=== PATIENT | female | born 1990 | race Caucasian/White ===

== ENCOUNTER 2020-03-29 18:17 | Emergency (ER) | payer SELFPAY ==
[~2020-03-29] VITALS: Ht 175.3 cm; Wt 75.0 kg
[2020-03-29] MEDS ORDERED: IV NORMAL SALINE 1000ML BAG 1,000 ML IV SCH (18:46)
--- NOTE | 2020-03-29 18:54 | PHYS DOC ---
Past Medical History Past Medical History: No Pertinent History Past Surgical History: Appendectomy, Tonsillectomy Smoking Status: Never Smoker Alcohol Use: None General Adult EDM: Chief Complaint: NAUSEA/VOMITING/DIARRHA HPI: HPI: Patient is a 30 year old female who presents with states for the last couple weeks she has had nausea, vomiting, abdominal pain, diarrhea and blood in her diarrhea. She states that the pain is sharp and shooting and generalized. She states is more so does hurt in the left upper quadrant than anywhere else. She states she is unable to keep any food or drink down for the last couple days. She did see her primary care who referred her to a GI doctor. She has a appointment with a GI doctor in 3 weeks. She states that her primary care doctor gave her Zofran which is not working. She is tachycardic. She rates her pain an 8 out of 10. She states she has been taking Tylenol and ibuprofen but vomited it back up. Review of Systems: Review of Systems: GI: abdominal pain, nausea, vomiting, bloody stools or diarrhea. [] Heart Score: Risk Factors: Risk Factors: DM, Current or recent (<one month) smoker, HTN, HLP, family history of CAD, obesity. Risk Scores: Score 0 - 3: 2.5% MACE over next 6 weeks - Discharge Home Score 4 - 6: 20.3% MACE over next 6 weeks - Admit for Clinical Observation Score 7 - 10: 72.7% MACE over next 6 weeks - Early Invasive Strategies Current Medications: Current Medications Medications (Trade) Dose Ordered Sig/[facility] Start Time Stop Time Status Last Admin Dose Admin Fentanyl Citrate (Fentanyl 2ml Vial) 50 mcg 1X ONCE 03/29/20 19:00 03/29/20 19:01 UNV Ondansetron HCl (Zofran) 4 mg 1X ONCE 03/29/20 19:00 03/29/20 19:01 UNV Sodium Chloride 1,000 ml @ 1,000 mls/hr Q1H 03/29/20 18:46 03/29/20 19:45 UNV Allergies: Allergies: Allergies Coded Allergies Type Severity Reaction Last Updated Verified No Known Drug Allergies 03/29/20 No Physical Exam: PE: Constitutional: Well developed, well nourished, no acute distress, non-toxic appearance. [] HENT: Normocephalic, atraumatic, bilateral external ears normal, oropharynx moist, no oral exudates, nose normal. [] Eyes: PERRLA, EOMI, conjunctiva normal, no discharge. [] Neck: Normal range of motion, no tenderness, supple, no stridor. [] Cardiovascular:Heart rate regular rhythm, no murmur [] Lungs & Thorax: Bilateral breath sounds clear to auscultation [] Abdomen: Bowel sounds normal, soft, generalized tenderness, no masses, no pulsatile masses. [] Skin: Warm, dry, no erythema, no rash. [] Back: No tenderness, no CVA tenderness. [] Extremities: No tenderness, no cyanosis, no clubbing, ROM intact, no edema. [] Neurologic: Alert and oriented X 3, normal motor function, normal sensory function, no focal deficits noted. [] Psychologic: Affect normal, judgement normal, mood normal. [] Current Patient Data: Labs: Laboratory Tests Test 03/29/20 18:30 POC Urine HCG, Qualitative Hcg negative (Negative) Vital Signs: Vital Signs Date Time Temp Pulse Resp B/P (MAP) Pulse Ox O2 Delivery O2 Flow Rate FiO2 03/29/20 18:34 98.0 120 20 141/78 (99) 100 Room Air 98.0 EKG: EKG: [] Radiology/Procedures: Radiology/Procedures: [] Impression: [facility] [address] [place], [place] [id number] IMAGING REPORT Signed PATIENT: TANK TOMAS ACCOUNT: [id number] : 1990 LOCATION: ER AGE: 30 SEX: F EXAM STATUS: REG ER ORD. PHYSICIAN: DEMI CH APRN REASON: ABD PAIN, DIARRHEA, VOMITING PROCEDURE: CT ABD PELV W/ IV CONTRST ONLY CT ABD PELV W/ IV CONTRST ONLY History: Reason: ABD PAIN, DIARRHEA, VOMITING / Spl. Instructions: [id number] 60ML / History: Technique: After the administration of intravenous contrast, CT imaging was performed of the abdomen and pelvis. Multiplanar images are reviewed. Exposure: One or more of the following individualized dose reduction techniques were utilized for this examination: 1. Automated exposure control 2. Adjustment of the mA and/or kV according to patient size 3. Use of iterative reconstruction technique. Comparison: January 24, 2020 Findings: Lower chest: No consolidation or pleural effusion. Abdomen and pelvis: The liver, spleen, adrenal glands, and pancreas are unremarkable. Prior cholecystectomy. No biliary ductal dilatation. Normal appearance of the kidneys. No hydronephrosis. Decompressed urinary bladder. Prior appendectomy. No evidence of bowel obstruction. No pathologic lymphadenopathy. No ascites. Bones: No pathologic osseous lesions. Impression: 1. No acute abdominal or pelvic pathology. Electronically signed by: Jon Kaur DO (03/29/2020 7:59 PM) [facility] DICTATED and SIGNED BY: JON KAUR DO DATE: 03/29/201958 Course & Med Decision Making: Course & Med Decision Making Pertinent Labs and Imaging studies reviewed. (See chart for details) Alert and oriented. Speaks in full clear sentences. Ambulatory with steady gait. Abdomen is soft generalized tenderness throughout. Patient is tachycardic. Skin pink warm and dry. Blood work unremarkable. Urinalysis is unremarkable. CT abdomen pelvis is un remarkable. Patient was PO challenged and drank water and kept it down. Patient to be sent home with ODT zofran and to slowly increase her diet starting with fluids only. Patient to keep her scheduled appointment with GI at [facility] doctor as scheduled. . [] Julisa Disclaimer: Julisa Disclaimer: This electronic medical record was generated, in whole or in part, using a voice recognition dictation system. Departure Departure Impression: Primary Impression: Nausea & vomiting Qualified Codes: R11.2 - Nausea with vomiting, unspecified Disposition: 01 HOME, SELF-CARE Condition: STABLE Patient Instructions: Nausea and Vomiting, [place]-cy-[id number] Additional Instructions: Slowly advance her diet. Start with fluids. Take sips of fluid often to stay hydrated. Use medication as prescribed. Scripts Hydrocodone/Apap 5-325 (NORCO 5-325 TABLET) 1 Each Tablet 1 TAB PO PRN Q6HRS PRN for PAIN, #10 TAB 0 Refills Prov: DEMI CH APRN 03/29/20 Ondansetron (ONDANSETRON ODT) 4 Mg Tab.rapdis 1 TAB PO PRN Q6-8HRS, #16 TAB Prov: DEMI CH APRN 03/29/20 Justicifation of Admission Dx: Justifications for Admission: Justification of Admission Dx: N/A DEMI CH APRN Mar 29, 2020 18:53
[2020-03-29] MEDS ORDERED: fentaNYL PF VIAL 100 MCG/2 ML VIAL IVP ONE (19:00)
[2020-03-29] MEDS ORDERED: ONDANSETRON PF 4 MG/2 ML VIAL. IVP ONE (19:00)
[2020-03-29 19:09] LABS: BILIRUBIN,URINE NEGATIVE (NEG); CLARITY,URINE CLEAR; COLOR,URINE YELLOW; NITRITE,URINE NEGATIVE (NEG); PH,URINE 5.5 (<5.0-8.0); PROTEIN,URINE NEGATIVE (NEG-TRACE); UROBILINOGEN,URINE 0.2 mg/dL (0.2 mg/dL)
[2020-03-29 19:13] LABS: BASO % 0 % (0-3); EOS % 0 % (0-3); HEMATOCRIT 32.3 % (36.0-47.0); HEMOGLOBIN 10.9 g/dL (12.0-15.5); LYMPH # 1.5 x10^3/uL (1.0-4.8); LYMPH % 20 % (24-48); MEAN CORPUSCULAR HEMOGLOBIN 28 pg (25-35); MEAN CORPUSCULAR HGB CONC 34 g/dL (31-37); MEAN CORPUSCULAR VOLUME 82 fL (79-100); MONO # 0.6 x10^3/uL (0.0-1.1); MONO % 8 % (0-9); NEUT # 5.4 x10^3/uL (1.8-7.7); NEUT % 71 % (31-73); PLATELET COUNT 268 x10^3/uL (140-400); RED BLOOD COUNT 3.91 x10^6/uL (3.50-5.40); WHITE BLOOD COUNT 7.5 x10^3/uL (4.0-11.0)
[2020-03-29 19:14] LABS: AMPHETAMINE/METHAMPHETAMINE NEG (NEG); BARBITURATES NEG (NEG); BENZODIAZEPINES NEG (NEG); CANNABINOIDS NEG (NEG); COCAINE NEG (NEG); METHADONE NEG (NEG); OPIATES NEG (NEG); PHENCYCLIDINE NEG (NEG)
[2020-03-29 19:15] LABS: FECAL OB PT POSITIVE (NEG)
[2020-03-29 19:19] LABS: CALCIUM 8.6 mg/dL (8.5-10.1); CREATININE 1.1 mg/dL (0.6-1.0); GFR 58.3; POTASSIUM 3.5 mmol/L (3.5-5.1)
[2020-03-29 19:20] LABS: BACTERIA,URINE FEW /HPF (0-FEW); RBC,URINE OCC /HPF (0-2); SQUAMOUS EPITHELIAL CELL,UR FEW /LPF
[2020-03-29 19:22] LABS: PROTHROMBIN TIME PATIENT 12.8 SEC (11.7-14.0)
[2020-03-29 19:27] LABS: ALBUMIN/GLOBULIN RATIO 1.2 (1.0-1.7); TOTAL BILIRUBIN 0.4 mg/dL (0.2-1.0); TOTAL PROTEIN 7.4 g/dL (6.4-8.2)
[2020-03-29] MEDS ORDERED: IOHEXOL 300 MG/ML 100ML VIAL. IV ONE (19:30)
--- NOTE | 2020-03-29 20:03 | RAD ---
CT ABD PELV W/ IV CONTRST ONLY History: Reason: ABD PAIN, DIARRHEA, VOMITING / Spl. Instructions: [id number] 60ML / History: Technique: After the administration of intravenous contrast, CT imaging was performed of the abdomen and pelvis. Multiplanar images are reviewed. Exposure: One or more of the following individualized dose reduction techniques were utilized for this examination: 1. Automated exposure control 2. Adjustment of the mA and/or kV according to patient size 3. Use of iterative reconstruction technique. Comparison: January 24, 2020 Findings: Lower chest: No consolidation or pleural effusion. Abdomen and pelvis: The liver, spleen, adrenal glands, and pancreas are unremarkable. Prior cholecystectomy. No biliary ductal dilatation. Normal appearance of the kidneys. No hydronephrosis. Decompressed urinary bladder. Prior appendectomy. No evidence of bowel obstruction. No pathologic lymphadenopathy. No ascites. Bones: No pathologic osseous lesions. Impression: 1. No acute abdominal or pelvic pathology. Electronically signed by: Jon Carrasco DO (03/29/2020 7:59 PM) [facility]
[2020-03-29 20:50] VITALS: BP 128/75
[2020-03-29] MEDS ORDERED: ONDA4TAB12 PO (21:04)
[2020-03-29] MEDS ORDERED: HYDR-3164 PO (21:19)
== END 2020-03-29 21:17 | disposition home or self-care (01) ==
LOC: ER 18:17
DX: R11.2 Nausea with vomiting, unspecified (principal); R19.7 Diarrhea, unspecified; R10.84 Generalized abdominal pain; Z90.89 Acquired absence of other organs
CPT/HCPCS: 36415; 74177; 80053; 80307; 81001; 81025; 82274; 83690; 85025; 85610; 96361; 96374; 96375; 99285; J2405; J3010; J7030; Q9967

== ENCOUNTER 2020-05-20 12:37 | Emergency (ER) | payer SELFPAY ==
[~2020-05-20] VITALS: Ht 175.3 cm; Wt 75.0 kg
[~2020-05-20 12:37] MED LIST: HYDR-3164 PO; ONDA4TAB12 PO
[2020-05-20 13:11] LABS: BILIRUBIN,URINE NEGATIVE (NEG); CLARITY,URINE CLEAR; COLOR,URINE YELLOW; NITRITE,URINE NEGATIVE (NEG); PH,URINE 6.5 (<5.0-8.0); PROTEIN,URINE NEGATIVE (NEG-TRACE); UROBILINOGEN,URINE 0.2 mg/dL (0.2 mg/dL)
[2020-05-20] MEDS ORDERED: IV NORMAL SALINE 1000ML BAG 1,000 ML IV ONE (13:15)
[2020-05-20 13:20] LABS: BASO % 1 % (0-3); EOS % 1 % (0-3); HEMATOCRIT 35.4 % (36.0-47.0); HEMOGLOBIN 11.6 g/dL (12.0-15.5); LYMPH # 1.1 x10^3/uL (1.0-4.8); LYMPH % 24 % (24-48); MEAN CORPUSCULAR HEMOGLOBIN 26 pg (25-35); MEAN CORPUSCULAR HGB CONC 33 g/dL (31-37); MEAN CORPUSCULAR VOLUME 79 fL (79-100); MONO # 0.3 x10^3/uL (0.0-1.1); MONO % 6 % (0-9); NEUT # 3.3 x10^3/uL (1.8-7.7); NEUT % 70 % (31-73); PLATELET COUNT 250 x10^3/uL (140-400); RED BLOOD COUNT 4.46 x10^6/uL (3.50-5.40); RED CELL DISTRIBUTION WIDTH 16.8 % (11.5-14.5); WHITE BLOOD COUNT 4.8 x10^3/uL (4.0-11.0)
[2020-05-20 13:26] LABS: BACTERIA,URINE FEW /HPF (0-FEW); RBC,URINE 0 /HPF (0-2); SQUAMOUS EPITHELIAL CELL,UR MANY /LPF; WBC,URINE OCC /HPF (0-4)
[2020-05-20 13:27] LABS: CALCIUM 9.3 mg/dL (8.5-10.1); CREATININE 0.8 mg/dL (0.6-1.0); GFR 84.2; POTASSIUM 3.5 mmol/L (3.5-5.1)
[2020-05-20] MEDS ORDERED: KETOROLAC 30 MG/ML VIAL. IVP ONE (13:30)
[2020-05-20] MEDS ORDERED: ONDANSETRON PF 4 MG/2 ML VIAL. IVP ONE (13:30)
[2020-05-20 13:33] LABS: ALBUMIN 4.2 g/dL (3.4-5.0); ALBUMIN/GLOBULIN RATIO 1.1 (1.0-1.7); TOTAL BILIRUBIN 0.3 mg/dL (0.2-1.0)
--- NOTE | 2020-05-20 14:07 | RAD ---
CT abdomen pelvis without contrast dated 05/20/2020. Comparison made to 03/29/2020 Clinical data indication: Left flank pain. History of Crohn's. TECHNIQUE: Contiguous axial imaging the abdomen pelvis performed without the administration of IV or oral contrast. One or more of the following individualized dose reduction techniques were utilized for this examination: 1. Automated exposure control 2. Adjustment of the mA and/or kV according to patient size 3. Use of iterative reconstruction technique. FINDINGS: Limited images of the lung bases are clear. Heart size within normal limits. No pleural or pericardial effusion. Solid abdominal viscera not well evaluated in the absence of contrast material. No apparent attenuation abnormality of the liver or spleen. The gallbladder is surgically absent. Pancreas, adrenal glands and kidneys are unremarkable. No stone or hydronephrosis. Unopacified GI tract is normal in caliber and contour. No focal bowel wall thickening. The appendix is surgically absent. No free fluid or pelvic lymphadenopathy. Abdominal aorta normal in caliber. Images of pelvis show nondistended urinary bladder. Uterus and adnexa are unremarkable. No free fluid or pelvic lymphadenopathy. Bone windows show no acute findings. IMPRESSION: 1. No acute abnormality of abdomen or pelvis. No renal stone or hydronephrosis. 2. Status post appendectomy. Electronically signed by: Sam Cee MD (05/20/2020 2:04 PM) [id number]
--- NOTE | 2020-05-20 14:27 | PHYS DOC ---
Past Medical History Past Medical History: Kidney Stone, Other Additional Past Medical Histor: CROHNS Past Surgical History: Appendectomy, Cholecystectomy, Tonsillectomy Smoking Status: Never Smoker Alcohol Use: None General Adult EDM: Chief Complaint: ABDOMINAL PAIN HPI: HPI: Patient is a 30 year old female who presents to the emergency department with complaints of nausea vomiting and diarrhea for the past week. Patient states she has Crohn's disease and feels this is a Crohn's flareup. Patient states that she tried to deal with her Crohn's flareup at home by drinking clear liquids and rest, however this did not work and she is in the emergency department today for some help. Patient states that she has thrown up 10 times over the past 24 hours with yellow-colored vomitus, also reports 8 mucus/brown color loose stools over the past 24 hours. Patient states that her pain is on the left flank down to her left lower abdomen. States that the pain in her left lower abdomen is consistent with her previous Crohn's flareups, however she states her left flank pain is unusual. Patient describes the pain as a slow onset and rates it at a 8/10 pain on a 1-10 pain scale. Patient denies any fever or chills, any problems with her visual acuities, denies nasal congestion or sore throat, denies any chest pains or shortness of breath or cough. Patient denies any problems urinating, denies any vaginal discharge nor STI concerns. Patient denies any pain in her back. She denies any skin rashes, headaches, focal weaknesses or sensory changes. Patient denies any increased urination or increased thirst. She denies any swelling of her glands, any depressions anxieties homicidal or suicidal ideations. Patient denies any contact with the COVID-19 virus nor is concerned of having the COVID-19 virus and does not wish to be tested today. Review of Systems: Review of Systems: Constitutional: Denies fever or chills. Denies concerns for the COVID-19 virus. Eyes: Denies change in visual acuity. HENT: Denies nasal congestion or sore throat. Respiratory: Denies cough or shortness of breath. Cardiovascular: Denies chest pain or edema. GI: Complains of nausea, vomiting, diarrhea, left flank pain, left lower quad rant pain. : Denies dysuria. Denies vaginal discharge, denies STI concerns. Musculoskeletal: Denies back pain or joint pain. Integument: Denies rash. Neurologic: Denies headache, focal weakness or sensory changes. Endocrine: Denies polyuria or polydipsia. Lymphatic: Denies swollen glands. Psychiatric: Denies depression or anxiety. Denies homicidal or suicidal ideations. Heart Score: Risk Factors: Risk Factors: DM, Current or recent (<one month) smoker, HTN, HLP, family history of CAD, obesity. Risk Scores: Score 0 - 3: 2.5% MACE over next 6 weeks - Discharge Home Score 4 - 6: 20.3% MACE over next 6 weeks - Admit for Clinical Observation Score 7 - 10: 72.7% MACE over next 6 weeks - Early Invasive Strategies Current Medications: Current Medications Medications (Trade) Dose Ordered Sig/[facility] Start Time Stop Time Status Last Admin Dose Admin Ketorolac Tromethamine (Toradol 30mg Vial) 30 mg 1X ONCE 05/20/20 13:30 05/20/20 13:31 DC 05/20/20 13:35 30 MG Ondansetron HCl (Zofran) 4 mg 1X ONCE 05/20/20 13:30 05/20/20 13:31 DC 05/20/20 13:35 4 MG Sodium Chloride 1,000 ml @ 1,000 mls/hr 1X ONCE 05/20/20 13:15 05/20/20 14:14 DC 05/20/20 13:35 1,000 MLS/HR Allergies: Allergies: Allergies Coded Allergies Type Severity Reaction Last Updated Verified metoclopramide Allergy Unknown rash, lockjaw 03/29/20 Yes prochlorperazine Allergy Unknown rash, jaw 03/29/20 Yes Physical Exam: PE: Constitutional: Well developed, well nourished, no acute distress, non-toxic appearance. HENT: Normocephalic, atraumatic, bilateral external ears normal, oropharynx moist, no oral exudates, nose normal. Eyes: PERRLA, EOMI, conjunctiva normal, no discharge. Pupils 5 mm. Neck: Normal range of motion, no tenderness, supple, no stridor. Cardiovascular:Heart rate regular rhythm, no murmur heart sounds S1-S2, no abnormalities per auscultation. Lungs & Thorax: Bilateral breath sounds clear to auscultation all lung bradley. Abdomen: Bowel sounds hyperactive all 4 quadrants to auscultation, soft, tenderness to palpation left lower quadrant without rebound tenderness, no psoas sign, no McBurney's point tenderness, no masses, no pulsatile masses. Skin: Warm, dry, no erythema, no rash. Back: No tenderness, however does have left-sided CVA tenderness, does not have right-sided CVA tenderness to palpation. Extremities: No tenderness, no cyanosis, no clubbing, ROM intact, no edema. Neurologic: Alert and oriented X 3, normal motor function, normal sensory function, no focal deficits noted. Psychologic: Affect normal, judgement normal, mood normal. Current Patient Data: Labs: Laboratory Tests Test 05/20/20 13:02 05/20/20 13:05 05/20/20 13:12 Urine Collection Type Unknown Urine Color Yellow Urine Clarity Clear Urine pH 6.5 (<5.0-8.0) Urine Specific [place] 1.015 (1.000-1.030) Urine Protein Negative mg/dL (NEG-TRACE) Urine Glucose (UA) Negative mg/dL (NEG) Urine Ketones (Stick) Negative mg/dL (NEG) Urine Blood Negative (NEG) Urine Nitrite Negative (NEG) Urine Bilirubin Negative (NEG) Urine Urobilinogen Dipstick 0.2 mg/dL (0.2 mg/dL) Urine Leukocyte Esterase Trace (NEG) Urine RBC 0 /HPF (0-2) Urine WBC Occ /HPF (0-4) Urine Squamous Epithelial Cells Many /LPF Urine Bacteria Few /HPF (0-FEW) White Blood Count 4.8 x10^3/uL (4.0-11.0) Red Blood Count 4.46 x10^6/uL (3.50-5.40) Hemoglobin 11.6 g/dL (12.0-15.5) L Hematocrit 35.4 % (36.0-47.0) L Mean Corpuscular Volume 79 fL (79-100) Mean Corpuscular Hemoglobin 26 pg (25-35) Mean Corpuscular Hemoglobin Concent 33 g/dL (31-37) Red Cell Distribution Width 16.8 % (11.5-14.5) H Platelet Count 250 x10^3/uL (140-400) Neutrophils (%) (Auto) 70 % (31-73) Lymphocytes (%) (Auto) 24 % (24-48) Monocytes (%) (Auto) 6 % (0-9) Eosinophils (%) (Auto) 1 % (0-3) Basophils (%) (Auto) 1 % (0-3) Neutrophils # (Auto) 3.3 x10^3/uL (1.8-7.7) Lymphocytes # (Auto) 1.1 x10^3/uL (1.0-4.8) Monocytes # (Auto) 0.3 x10^3/uL (0.0-1.1) Eosinophils # (Auto) 0.0 x10^3/uL (0.0-0.7) Basophils # (Auto) 0.0 x10^3/uL (0.0-0.2) Sodium Level 138 mmol/L (136-145) Potassium Level 3.5 mmol/L (3.5-5.1) Chloride Level 102 mmol/L (98-107) Carbon Dioxide Level 25 mmol/L (21-32) Anion Gap 11 (6-14) Blood Urea Nitrogen 9 mg/dL (7-20) Creatinine 0.8 mg/dL (0.6-1.0) Estimated GFR (Cockcroft-Gault) 84.2 BUN/Creatinine Ratio 11 (6-20) Glucose Level 88 mg/dL (70-99) Calcium Level 9.3 mg/dL (8.5-10.1) Total Bilirubin 0.3 mg/dL (0.2-1.0) Aspartate Amino Transferase (AST) 17 U/L (15-37) Alanine Aminotransferase (ALT) 47 U/L (14-59) Alkaline Phosphatase 110 U/L (46-116) Total Protein 8.0 g/dL (6.4-8.2) Albumin 4.2 g/dL (3.4-5.0) Albumin/Globulin Ratio 1.1 (1.0-1.7) POC Urine HCG, Qualitative Hcg negative (Negative) Laboratory Tests 05/20/20 13:05 Laboratory Tests 05/20/20 13:05 Vital Signs: Vital Signs Date Time Temp Pulse Resp B/P (MAP) Pulse Ox O2 Delivery O2 Flow Rate FiO2 05/20/20 12:51 99.1 125 16 138/84 (102) 97 Room Air 99.1 EKG: EKG: [] Radiology/Procedures: Radiology/Procedures: PROCEDURE: CT ABDOMEN PELVIS WO CONTRAST CT abdomen pelvis without contrast dated 05/20/2020. Comparison made to 03/29/2020 Clinical data indication: Left flank pain. History of Crohn's. TECHNIQUE: Contiguous axial imaging the abdomen pelvis performed without the administration of IV or oral contrast. One or more of the following individualized dose reduction techniques were utilized for this examination: 1. Automated exposure control 2. Adjustment of the mA and/or kV according to patient size 3. Use of iterative reconstruction technique. FINDINGS: Limited images of the lung bases are clear. Heart size within normal limits. No pleural or pericardial effusion. Solid abdominal viscera not well evaluated in the absence of contrast material. No apparent attenuation abnormality of the liver or spleen. The gallbladder is surgically absent. Pancreas, adrenal glands and kidneys are unremarkable. No stone or hydronephrosis. Unopacified GI tract is normal in caliber and contour. No focal bowel wall thickening. The appendix is surgically absent. No free fluid or pelvic lymphadenopathy. Abdominal aorta normal in caliber. Images of pelvis show nondistended urinary bladder. Uterus and adnexa are unremarkable. No free fluid or pelvic lymphadenopathy. Bone windows show no acute findings. IMPRESSION: 1. No acute abnormality of abdomen or pelvis. No renal stone or hydronephrosis. 2. Status post appendectomy. Electronically signed by: Sam Cee MD (05/20/2020 2:04 PM) [id number] DICTATED and SIGNED BY: SAM CEE MD DATE: 05/20/20 1404 Course & Med Decision Making: Course & Med Decision Making Pertinent Labs and Imaging studies reviewed. (See chart for details) 30-year-old female presented to the emergency department with a slow onset of left lower quadrant pain along with left flank pain that she associates with her Crohn's flareups. Patient stated that she had loose mucousy stools without bloody diarrhea. Patient did have left CVA tenderness which she stated she had not had before. Although patient did not experience the sudden onset of flank and CVA pain associated with kidney stone, a CT of the abdomen was done to rule out kidney stones along with Crohn's flareup. Vital signs were reviewed, labs were performed, CT imaging interpreted by radiologist was non-concerning for acute process of the abdomen nor kidney stone. Urinalysis was concerning for acute simple cystitis. Discussed findings with patient, will start on Macrobid for simple cystitis. Patient was amenable to discharge instructions and discharge home medications gave verbal understanding of, denied further questions or concerns. Patient discharged home. Julisa Disclaimer: Julisa Disclaimer: This electronic medical record was generated, in whole or in part, using a voice recognition dictation system. Departure Departure Impression: Primary Impression: UTI (urinary tract infection) Qualified Codes: N30.00 - Acute cystitis without hematuria Additional Impressions: Nausea & vomiting Qualified Codes: R11.2 - Nausea with vomiting, unspecified Abdominal pain Qualified Codes: R10.32 - Left lower quadrant pain Acute Crohn's disease Qualified Codes: K50.919 - Crohn's disease, unspecified, with unspecified complications Disposition: HOME, SELF-CARE Condition: GOOD Referrals: DONNA MERINO (PCP) Patient Instructions: Urinary Tract Infection Scripts Tramadol Hcl (TRAMADOL HCL) 50 Mg Tablet 50 MG PO PRN TID PRN for PAIN, #10 TAB 0 Refills Prov: SAM ALDRIDGE APRN 05/20/20 Ondansetron (ONDANSETRON ODT) 4 Mg Tab.rapdis 1 TAB PO PRN Q6-8HRS, #16 TAB 0 Refills Prov: SAM ALDRIDGE APRN 05/20/20 Nitrofurantoin Monohyd/M-Cryst (MACROBID 100 MG CAPSULE) 100 Mg Capsule 1 CAP PO BID for 5 Days, #10 CAP 0 Refills Prov: SAM ALDRIDGE APRN 05/20/20 Justicifation of Admission Dx: Justifications for Admission: Justification of Admission Dx: N/A SAM ALDRIDGE APRN May 20, 2020 14:27
[2020-05-20] MEDS ORDERED: fentaNYL PF VIAL 100 MCG/2 ML VIAL IVP ONE (14:30)
[2020-05-20 15:00] VITALS: BP 115/63
[2020-05-20] MEDS ORDERED: NITR100C62 PO (15:46)
[2020-05-20] MEDS ORDERED: ONDA4TAB12 PO (15:46)
[2020-05-20] MEDS ORDERED: TRAM50TA PO (16:10)
== END 2020-05-20 16:12 | disposition home or self-care (01) ==
LOC: ER 12:37
DX: N30.00 Acute cystitis without hematuria (principal); K50.919 Crohn's disease, unspecified, with unspecified complications; R10.32 Left lower quadrant pain; R11.2 Nausea with vomiting, unspecified; R19.7 Diarrhea, unspecified; Z90.89 Acquired absence of other organs; Z90.49 Acquired absence of other specified parts of digestive tract; Z87.442 Personal history of urinary calculi; Z88.8 Allergy status to other drugs, medicaments and biological substances
CPT/HCPCS: 36415; 74176; 80053; 81001; 81025; 85025; 87086; 96374; 96375; 99285; J1885; J2405; J3010; J7030

== ENCOUNTER 2020-07-11 11:44 | Emergency (ER) | payer SELFPAY ==
[~2020-07-11] VITALS: Ht 175.3 cm; Wt 75.0 kg
[~2020-07-11 11:44] MED LIST changes: +NITR100C62 PO; +TRAM50TA PO
[2020-07-11] MEDS ORDERED: IV NORMAL SALINE 1000ML BAG 1,000 ML IV SCH (12:44)
[2020-07-11 13:00] LABS: BASO % 1 % (0-3); EOS # 0.1 x10^3/uL (0.0-0.7); EOS % 1 % (0-3); HEMATOCRIT 35.5 % (36.0-47.0); HEMOGLOBIN 11.9 g/dL (12.0-15.5); LYMPH # 1.1 x10^3/uL (1.0-4.8); LYMPH % 19 % (24-48); MEAN CORPUSCULAR HEMOGLOBIN 27 pg (25-35); MEAN CORPUSCULAR HGB CONC 33 g/dL (31-37); MEAN CORPUSCULAR VOLUME 81 fL (79-100); MONO # 0.3 x10^3/uL (0.0-1.1); MONO % 6 % (0-9); NEUT # 4.3 x10^3/uL (1.8-7.7); NEUT % 74 % (31-73); PLATELET COUNT 263 x10^3/uL (140-400); WHITE BLOOD COUNT 5.8 x10^3/uL (4.0-11.0)
[2020-07-11] MEDS ORDERED: ONDANSETRON PF 4 MG/2 ML VIAL. IVP ONE (13:00)
[2020-07-11] MEDS ORDERED: IV NORMAL SALINE 1000ML BAG 1,000 ML IV ONE (13:00)
[2020-07-11] MEDS ORDERED: MORPHINE SULFATE 4 MG/ML VIAL. IV ONE (13:00)
[2020-07-11 13:04] LABS: BILIRUBIN,URINE NEGATIVE (NEG); CLARITY,URINE CLEAR; COLOR,URINE YELLOW; NITRITE,URINE NEGATIVE (NEG); PH,URINE 6.5 (<5.0-8.0); PROTEIN,URINE NEGATIVE (NEG-TRACE); UROBILINOGEN,URINE 0.2 mg/dL (0.2 mg/dL)
[2020-07-11 13:15] LABS: CREATININE 0.8 mg/dL (0.6-1.0); GFR 84.2; POTASSIUM 3.8 mmol/L (3.5-5.1)
[2020-07-11 13:20] LABS: ALBUMIN 4.3 g/dL (3.4-5.0); ALBUMIN/GLOBULIN RATIO 1.2 (1.0-1.7); TOTAL BILIRUBIN 0.3 mg/dL (0.2-1.0)
[2020-07-11 13:22] LABS: BACTERIA,URINE MODERATE /HPF (0-FEW); RBC,URINE 0 /HPF (0-2); SQUAMOUS EPITHELIAL CELL,UR MOD /LPF
[2020-07-11] MEDS ORDERED: FAMOTIDINE 20 MG/2 ML VIAL IVP ONE (13:30)
[2020-07-11] MEDS ORDERED: diphenhydrAMINE 50 MG/ML VIAL IVP ONE (13:30)
[2020-07-11] MEDS ORDERED: methylPREDNISolone SOD SUCC PF 125 MG/2 ML VIAL. IV ONE (13:30)
[2020-07-11] MEDS ORDERED: fentaNYL PF VIAL 100 MCG/2 ML VIAL IVP ONE (14:00)
--- NOTE | 2020-07-11 14:34 | PHYS DOC ---
Past Medical History Past Medical History: Kidney Stone, Other Additional Past Medical Histor: CROHNS Past Surgical History: Appendectomy, Cholecystectomy, Tonsillectomy Smoking Status: Never Smoker Alcohol Use: None General Adult EDM: Chief Complaint: ABDOMINAL PAIN HPI: HPI: Patient is a 30 year old female with history of Crohn's disease, presented to ER today for evaluation of nausea vomiting and abdominal pain for about a week. Patient states she called her GI doctor a single hospital but not able to see her doctor UNTIL 2 weeks from now. Patient denies any fever, no chest pain, no cough. Patient was seen here on March and on April for the same problem, she had CT scan of her abdomen pelvis in March and April all came back negative. Review of Systems: Review of Systems: Constitutional: Denies fever or chills. [] Eyes: Denies change in visual acuity. [] HENT: Denies nasal congestion or sore throat. [] Respiratory: Denies cough or shortness of breath. [] Cardiovascular: Denies chest pain or edema. [] GI: Positive for abdominal pain, nausea vomiting, no diarrhea. : Denies dysuria. [] Musculoskeletal: Denies back pain or joint pain. [] Integument: Denies rash. [] Neurologic: Denies headache, focal weakness or sensory changes. [] Endocrine: Denies polyuria or polydipsia. [] Lymphatic: Denies swollen glands. [] Psychiatric: Denies depression or anxiety. [] Heart Score: Risk Factors: Risk Factors: DM, Current or recent (<one month) smoker, HTN, HLP, family history of CAD, obesity. Risk Scores: Score 0 - 3: 2.5% MACE over next 6 weeks - Discharge Home Score 4 - 6: 20.3% MACE over next 6 weeks - Admit for Clinical Observation Score 7 - 10: 72.7% MACE over next 6 weeks - Early Invasive Strategies Current Medications: Current Medications Medications (Trade) Dose Ordered Sig/Lynda Start Time Stop Time Status Last Admin Dose Admin Diphenhydramine HCl (Benadryl) 25 mg 1X ONCE 07/11/20 13:30 07/11/20 13:31 DC 07/11/20 13:25 25 MG Famotidine (Pepcid Vial) 20 mg 1X ONCE 07/11/20 13:30 07/11/20 13:31 DC 07/11/20 13:24 20 MG Fentanyl Citrate (Fentanyl 2ml Vial) 50 mcg 1X ONCE 07/11/20 14:00 07/11/20 14:06 DC 07/11/20 14:11 50 MCG Methylprednisolone Sodium Succinate (SOLU-Medrol 125MG VIAL) 125 mg 1X ONCE 07/11/20 13:30 07/11/20 13:31 DC 07/11/20 13:26 125 MG Morphine Sulfate (Morphine Sulfate) 4 mg 1X ONCE 07/11/20 13:00 07/11/20 13:01 DC 07/11/20 13:04 4 MG Ondansetron HCl (Zofran) 4 mg 1X ONCE 07/11/20 13:00 07/11/20 13:01 DC 07/11/20 13:04 4 MG Sodium Chloride 1,000 ml @ 1,000 mls/hr 1X ONCE 07/11/20 13:00 07/11/20 13:59 DC 07/11/20 13:04 1,000 MLS/HR Allergies: Allergies: Allergies Coded Allergies Type Severity Reaction Last Updated Verified metoclopramide Allergy Unknown rash, lockjaw 03/29/20 Yes prochlorperazine Allergy Unknown rash, lockjaw 03/29/20 Yes Physical Exam: PE: Constitutional: Well developed, well nourished, no acute distress, non-toxic appearance. [] HENT: Normocephalic, atraumatic, bilateral external ears normal, oropharynx moist, no oral exudates, nose normal. [] Eyes: PERRLA, EOMI, conjunctiva normal, no discharge. [] Neck: Normal range of motion, no tenderness, supple, no stridor. [] Cardiovascular:Heart rate regular rhythm, no murmur [] Lungs & Thorax: Bilateral breath sounds clear to auscultation [] Abdomen: Bowel sounds normal, soft, there is tenderness AT SUPRAPUBID AREA, no masses, no pulsatile masses. [] Skin: Warm, dry, no erythema, no rash. [] Back: No tenderness, no CVA tenderness. [] Extremities: No tenderness, no cyanosis, no clubbing, ROM intact, no edema. [] Neurologic: Alert and oriented X 3, normal motor function, normal sensory function, no focal deficits noted. [] Psychologic: Affect normal, judgement normal, mood normal. [] Current Patient Data: Labs: Laboratory Tests Test 07/11/20 12:48 07/11/20 12:52 White Blood Count 5.8 x10^3/uL (4.0-11.0) Red Blood Count 4.40 x10^6/uL (3.50-5.40) Hemoglobin 11.9 g/dL (12.0-15.5) L Hematocrit 35.5 % (36.0-47.0) L Mean Corpuscular Volume 81 fL (79-100) Mean Corpuscular Hemoglobin 27 pg (25-35) Mean Corpuscular Hemoglobin Concent 33 g/dL (31-37) Red Cell Distribution Width 20.0 % (11.5-14.5) H Platelet Count 263 x10^3/uL (140-400) Neutrophils (%) (Auto) 74 % (31-73) H Lymphocytes (%) (Auto) 19 % (24-48) L Monocytes (%) (Auto) 6 % (0-9) Eosinophils (%) (Auto) 1 % (0-3) Basophils (%) (Auto) 1 % (0-3) Neutrophils # (Auto) 4.3 x10^3/uL (1.8-7.7) Lymphocytes # (Auto) 1.1 x10^3/uL (1.0-4.8) Monocytes # (Auto) 0.3 x10^3/uL (0.0-1.1) Eosinophils # (Auto) 0.1 x10^3/uL (0.0-0.7) Basophils # (Auto) 0.0 x10^3/uL (0.0-0.2) Urine Collection Type Unknown Urine Color Yellow Urine Clarity Clear Urine pH 6.5 (<5.0-8.0) Urine Specific [place] 1.015 (1.000-1.030) Urine Protein Negative mg/dL (NEG-TRACE) Urine Glucose (UA) Negative mg/dL (NEG) Urine Ketones (Stick) Negative mg/dL (NEG) Urine Blood Negative (NEG) Urine Nitrite Negative (NEG) Urine Bilirubin Negative (NEG) Urine Urobilinogen Dipstick 0.2 mg/dL (0.2 mg/dL) Urine Leukocyte Esterase Negative (NEG) Urine RBC 0 /HPF (0-2) Urine WBC 1-4 /HPF (0-4) Urine Squamous Epithelial Cells Mod /LPF Urine Bacteria Moderate /HPF (0-FEW) Urine Mucus Slight /LPF Sodium Level 138 mmol/L (136-145) Potassium Level 3.8 mmol/L (3.5-5.1) Chloride Level 102 mmol/L (98-107) Carbon Dioxide Level 26 mmol/L (21-32) Anion Gap 10 (6-14) Blood Urea Nitrogen 12 mg/dL (7-20) Creatinine 0.8 mg/dL (0.6-1.0) Estimated GFR (Cockcroft-Gault) 84.2 BUN/Creatinine Ratio 15 (6-20) Glucose Level 94 mg/dL (70-99) Calcium Level 9.0 mg/dL (8.5-10.1) Total Bilirubin 0.3 mg/dL (0.2-1.0) Aspartate Amino Transferase (AST) 24 U/L (15-37) Alanine Aminotransferase (ALT) 68 U/L (14-59) H Alkaline Phosphatase 145 U/L (46-116) H Total Protein 8.0 g/dL (6.4-8.2) Albumin 4.3 g/dL (3.4-5.0) Albumin/Globulin Ratio 1.2 (1.0-1.7) Lipase 74 U/L (73-393) POC Urine HCG, Qualitative Hcg negative (Negative) Laboratory Tests 07/11/20 12:48 Laboratory Tests 07/11/20 12:48 Vital Signs: Vital Signs Date Time Temp Pulse Resp B/P (MAP) Pulse Ox O2 Delivery O2 Flow Rate FiO2 07/11/20 14:11 16 97 Room Air 07/11/20 12:20 99.5 104 135/81 (99) 99.5 EKG: EKG: [] Radiology/Procedures: Radiology/Procedures: [] Course & Med Decision Making: Course & Med Decision Making Pertinent Labs and Imaging studies reviewed. (See chart for details) Patient is a 30-year-old female with history of Crohn's disease presented to ER for evaluation of abdominal pain, lab work was normal, her abdominal exam nation is benign. Patient had TWO CT scans of her abdomen pelvic in March and May of this year, all came back negative. There is no further diagnostic work-up needed in the ER at this time, patient will need to follow-up with her GI specialist for further work-up evaluation and treatment. Julisa Disclaimer: Julisa Disclaimer: This electronic medical record was generated, in whole or in part, using a voice recognition dictation system. Departure Departure Impression: Primary Impression: Abdominal pain Disposition: HOME, SELF-CARE Condition: IMPROVED Referrals: UNKNOWN PCP NAME (PCP) PLEASE CALL YOUR GI DOCTOR FOR FOLLOW UP NEXT WEEK Patient Instructions: Abdominal Pain Additional Instructions: Thank you for visiting our Emergency Department. We appreciate you trusting us with your care. If any additional problems come up don't hesitate to return to visit us. Please follow up with your primary care provider so they can plan additional care if needed and know about the problem that you had. If symptoms worsen come back to the Emergency Department. Any concerning symptoms that start such as chest pain, shortness of air, weakness or numbness on one side of the body, running high fevers or any other concerning symptoms return to the ER. Scripts Ondansetron Hcl (ZOFRAN) 4 Mg Tablet 1 TAB PO Q6HRS PRN for NAUSEA, #20 TAB Prov: STAR SCHMIDT DO 07/11/20 Hydrocodone/Apap 5-325 (NORCO 5-325 TABLET) 1 Each Tablet 1 TAB PO PRN Q6HRS PRN for PAIN, #12 TAB 0 Refills Prov: STAR SCHMIDT DO 07/11/20 Justicifation of Admission Dx: Justifications for Admission: Justification of Admission Dx: N/A STAR SCHMIDT DO Jul 11, 2020 14:34
[2020-07-11] MEDS ORDERED: ONDA4TAB7 PO (15:13)
[2020-07-11] MEDS ORDERED: HYDR-3164 PO (15:13)
[2020-07-11 15:19] VITALS: BP 104/85
== END 2020-07-11 15:35 | disposition home or self-care (01) ==
LOC: ER 11:44
DX: R10.30 Lower abdominal pain, unspecified (principal); R11.2 Nausea with vomiting, unspecified; K50.90 Crohn's disease, unspecified, without complications; Z87.442 Personal history of urinary calculi; Z90.49 Acquired absence of other specified parts of digestive tract; Z90.89 Acquired absence of other organs; Z88.8 Allergy status to other drugs, medicaments and biological substances
CPT/HCPCS: 36415; 80053; 81001; 81025; 83690; 85025; 87086; 96361; 96374; 96375; 99285; J1200; J2270; J2405; J2930; J3010; J3490; J7030

== ENCOUNTER 2020-09-10 09:44 | Emergency (ER) | payer SELFPAY ==
[~2020-09-10] VITALS: Ht 175.3 cm; Wt 75.0 kg
[~2020-09-10 09:44] MED LIST changes: +ONDA4TAB7 PO
--- NOTE | 2020-09-10 10:26 | ED.ADGEN ---
Past Medical History Past Medical History: Kidney Stone, Other Additional Past Medical Histor: CROHNS Past Surgical History: Appendectomy, Cholecystectomy, Tonsillectomy Smoking Status: Never Smoker Alcohol Use: None General Adult EDM: Chief Complaint: FLANK PAIN HPI: HPI: Patient is a 30 year oldnnz-dtng-eiy female with right flank pain, dysuria, nausea, vomiting. Patient's has.she has had a urinary tract infection has been taking Azo symptoms are getting worse. Denies any fevers. She has had history of kidney stones but states she has not noticed any blood in her urine. No diarrhea or constipation. Review of Systems: Review of Systems: Constitutional: Denies fever or chills. [] Eyes: Denies change in visual acuity. [] HENT: Denies nasal congestion or sore throat. [] Respiratory: Denies cough or shortness of breath. [] Cardiovascular: Denies chest pain or edema. [] GI: Denies abdominal pain, bloody stools or diarrhea. [] But has had nausea and vomiting : Has dysuria, frequency but denies hematuria Musculoskeletal: Denies back pain or joint pain. [] Integument: Denies rash. [] Neurologic: Denies headache, focal weakness or sensory changes. [] Endocrine: Denies polyuria or polydipsia. [] Lymphatic: Denies swollen glands. [] Psychiatric: Denies depression or anxiety. [] Current Medications: Current Medications Medications (Trade) Dose Ordered Sig/Lynda Start Time Stop Time Status Last Admin Dose Admin Diphenhydramine HCl (Benadryl) 25 mg 1X ONCE 09/10/20 11:00 09/10/20 11:01 DC 09/10/20 10:42 25 MG Fentanyl Citrate (Fentanyl 2ml Vial) 50 mcg 1X ONCE 09/10/20 12:30 09/10/20 12:31 DC 09/10/20 12:48 50 MCG Ondansetron HCl (Zofran) 4 mg 1X ONCE 09/10/20 10:30 09/10/20 10:31 DC 09/10/20 10:26 4 MG Sodium Chloride 500 ml @ 500 mls/hr 1X ONCE 09/10/20 10:30 09/10/20 11:29 DC 09/10/20 10:29 500 MLS/HR Allergies: Allergies: Allergies Coded Allergies Type Severity Reaction Last Updated Verified metoclopramide Allergy Intermediate rash, lockjaw 09/10/20 Yes prochlorperazine Allergy Intermediate rash, lockjaw 09/10/20 Yes morphine Adverse Reaction Intermediate ITCHING 07/11/20 Yes Physical Exam: PE: Constitutional: Well developed, well nourished, no acute distress, non-toxic appearance. [] HENT: Normocephalic, atraumatic, bilateral external ears normal, oropharynx moist, no oral exudates, nose normal. [] Eyes: PERRLA, EOMI, conjunctiva normal, no discharge. [] Neck: Normal range of motion, no tenderness, supple, no stridor. [] Cardiovascular:Heart rate regular rhythm, no murmur [] Lungs & Thorax: Bilateral breath sounds clear to auscultation [] Abdomen: Bowel sounds normal, soft, no tenderness, no masses, no pulsatile masses. [] Skin: Warm, dry, no erythema, no rash. [] Back: No tenderness, no CVA tenderness. [] Extremities: No tenderness, no cyanosis, no clubbing, ROM intact, no edema. [] Neurologic: Alert and oriented X 3, normal motor function, normal sensory function, no focal deficits noted. [] Psychologic: Affect normal, judgement normal, mood normal. [] Current Patient Data: Labs: Laboratory Tests Test 09/10/20 09:45 09/10/20 10:10 09/10/20 10:14 Urine Collection Type Unknown Urine Color Yellow Urine Clarity Clear Urine pH 5.5 (<5.0-8.0) Urine Specific [place] >=1.030 (1.000-1.030) Urine Protein Negative mg/dL (NEG-TRACE) Urine Glucose (UA) Negative mg/dL (NEG) Urine Ketones (Stick) Trace mg/dL (NEG) Urine Blood Large (NEG) Urine Nitrite Negative (NEG) Urine Bilirubin Negative (NEG) Urine Urobilinogen Dipstick 0.2 mg/dL (0.2 mg/dL) Urine Leukocyte Esterase Negative (NEG) Urine RBC 20-40 /HPF (0-2) Urine WBC 1-4 /HPF (0-4) Urine Squamous Epithelial Cells Mod /LPF Urine Bacteria Few /HPF (0-FEW) Urine Mucus Mod /LPF White Blood Count 4.5 x10^3/uL (4.0-11.0) Red Blood Count 4.07 x10^6/uL (3.50-5.40) Hemoglobin 12.1 g/dL (12.0-15.5) Hematocrit 35.7 % (36.0-47.0) L Mean Corpuscular Volume 88 fL (79-100) Mean Corpuscular Hemoglobin 30 pg (25-35) Mean Corpuscular Hemoglobin Concent 34 g/dL (31-37) Red Cell Distribution Width 16.5 % (11.5-14.5) H Platelet Count 219 x10^3/uL (140-400) Neutrophils (%) (Auto) 72 % (31-73) Lymphocytes (%) (Auto) 20 % (24-48) L Monocytes (%) (Auto) 7 % (0-9) Eosinophils (%) (Auto) 1 % (0-3) Basophils (%) (Auto) 0 % (0-3) Neutrophils # (Auto) 3.3 x10^3/uL (1.8-7.7) Lymphocytes # (Auto) 0.9 x10^3/uL (1.0-4.8) L Monocytes # (Auto) 0.3 x10^3/uL (0.0-1.1) Eosinophils # (Auto) 0.0 x10^3/uL (0.0-0.7) Basophils # (Auto) 0.0 x10^3/uL (0.0-0.2) Maternal Serum HCG Beta Subunit 188 mIU/mL (0-5) H Sodium Level 138 mmol/L (136-145) Potassium Level 3.4 mmol/L (3.5-5.1) L Chloride Level 104 mmol/L (98-107) Carbon Dioxide Level 22 mmol/L (21-32) Anion Gap 12 (6-14) Blood Urea Nitrogen 14 mg/dL (7-20) Creatinine 0.7 mg/dL (0.6-1.0) Estimated GFR (Cockcroft-Gault) 98.3 BUN/Creatinine Ratio 20 (6-20) Glucose Level 111 mg/dL (70-99) H Calcium Level 8.8 mg/dL (8.5-10.1) Total Bilirubin 0.3 mg/dL (0.2-1.0) Aspartate Amino Transferase (AST) 16 U/L (15-37) Alanine Aminotransferase (ALT) 44 U/L (14-59) Alkaline Phosphatase 102 U/L (46-116) Total Protein 7.1 g/dL (6.4-8.2) Albumin 3.8 g/dL (3.4-5.0) Albumin/Globulin Ratio 1.2 (1.0-1.7) Lipase 79 U/L (73-393) POC Urine HCG, Qualitative Hcg positive (Negative) Laboratory Tests 09/10/20 10:10 Laboratory Tests 09/10/20 10:10 Vital Signs: Vital Signs Date Time Temp Pulse Resp B/P (MAP) Pulse Ox O2 Delivery O2 Flow Rate FiO2 09/10/20 12:48 16 96 Room Air 09/10/20 11:25 104 119/76 (90) 09/10/20 09:50 98.1 98.1 EKG: EKG: [] Heart Score: Risk Factors: Risk Factors: DM, Current or recent (<one month) smoker, HTN, HLP, family history of CAD, obesity. Risk Scores: Score 0 - 3: 2.5% MACE over next 6 weeks - Discharge Home Score 4 - 6: 20.3% MACE over next 6 weeks - Admit for Clinical Observation Score 7 - 10: 72.7% MACE over next 6 weeks - Early Invasive Strategies Radiology/Procedures: Radiology/Procedures: RENAL COMPLETE BILATERAL History: Reason: right flank pain / Spl. Instructions: / History: Comparison: None. Procedure: Transabdominal ultrasound images are obtained of the kidneys and bladder. Findings: Right kidney: measures 9.7 x 5.7 x 5.4 cm. Nonobstructing right intrarenal calculus. No hydronephrosis. Left kidney: measures 10.3 x 3.7 x 4.4 cm. No hydronephrosis. Urinary bladder: No urinary bladder wall thickening. Bilateral ureteral jets are identified. The IVC is normal caliber. The visualized abdominal aorta is normal caliber. IMPRESSION: 1. Nonobstructing right intrarenal calculus. No hydronephrosis. Electronically signed by: Jon Carrasco DO (09/10/2020 12:41 PM) [facility][] History: Reason: right abd pain in preg / Spl. Instructions: / History: Comparison: None. Technique: Grayscale and color Doppler imaging of the pelvis was performed using transabdominal technique. Findings: The uterus measures 7.5 x 5.1 x 3.9 cm. Nabothian cysts noted. No evidence of intrauterine gestational sac. Endometrial thickness 1.2 cm. Right ovary not identified due to positioning and overlying structures. Left ovary measures 2.4 x 2.3 x 1.5 cm. Complex dominant left ovarian follicle measures 0.7 cm. Normal Doppler flow to the ovaries bilaterally. No adnexal masses are seen. IMPRESSION: 1. No evidence of intrauterine gestational sac, may relate to early . Recommend short-term ultrasound follow-up and serial beta hCG testing. Course & Med Decision Making: Course & Med Decision Making Pertinent Labs and Imaging studies reviewed. (See chart for details) [] Dragon Disclaimer: Dragon Disclaimer: This electronic medical record was generated, in whole or in part, using a voice recognition dictation system. Departure Departure Impression: Primary Impression: Kidney stone on right side Additional Impression: Disposition: 01 DC HOME SELF CARE/HOMELESS Condition: STABLE Referrals: UNKNOWN PCP NAME (PCP) Patient Instructions: Diet for Kidney Stones Scripts Ondansetron (ONDANSETRON ODT) 4 Mg Tab.rapdis 1 TAB PO PRN Q6-8HRS for 5 Days, #16 TAB Prov: AMADEO RAMSAY MD 09/10/20 Hydrocodone/Apap 5-325 (NORCO 5-325 TABLET) 1 Each Tablet 1 TAB PO PRN Q6HRS PRN for PAIN for 5 Days, #15 TAB 0 Refills Prov: AMADEO RAMSAY MD 09/10/20 Problem Qualifiers AMADEO RAMSAY MD Sep 10, 2020 10:26
[2020-09-10] MEDS ORDERED: IV NORMAL SALINE 500ML BAG 500 ML IV ONE (10:30)
[2020-09-10] MEDS ORDERED: ONDANSETRON PF 4 MG/2 ML VIAL. IVP ONE (10:30)
[2020-09-10] MEDS ORDERED: fentaNYL PF VIAL 100 MCG/2 ML VIAL IVP ONE ×2 (10:30→12:30)
[2020-09-10 10:35] LABS: BASO % 0 % (0-3); EOS % 1 % (0-3); HEMATOCRIT 35.7 % (36.0-47.0); HEMOGLOBIN 12.1 g/dL (12.0-15.5); LYMPH # 0.9 x10^3/uL (1.0-4.8); LYMPH % 20 % (24-48); MEAN CORPUSCULAR HEMOGLOBIN 30 pg (25-35); MEAN CORPUSCULAR HGB CONC 34 g/dL (31-37); MEAN CORPUSCULAR VOLUME 88 fL (79-100); MONO # 0.3 x10^3/uL (0.0-1.1); MONO % 7 % (0-9); NEUT # 3.3 x10^3/uL (1.8-7.7); NEUT % 72 % (31-73); PLATELET COUNT 219 x10^3/uL (140-400); RED BLOOD COUNT 4.07 x10^6/uL (3.50-5.40); RED CELL DISTRIBUTION WIDTH 16.5 % (11.5-14.5); WHITE BLOOD COUNT 4.5 x10^3/uL (4.0-11.0)
[2020-09-10 10:47] LABS: CALCIUM 8.8 mg/dL (8.5-10.1); CREATININE 0.7 mg/dL (0.6-1.0); GFR 98.3; POTASSIUM 3.4 mmol/L (3.5-5.1)
[2020-09-10 10:53] LABS: ALBUMIN 3.8 g/dL (3.4-5.0); ALBUMIN/GLOBULIN RATIO 1.2 (1.0-1.7); TOTAL BILIRUBIN 0.3 mg/dL (0.2-1.0); TOTAL PROTEIN 7.1 g/dL (6.4-8.2)
[2020-09-10] MEDS ORDERED: diphenhydrAMINE 50 MG/ML VIAL IVP ONE (11:00)
[2020-09-10 11:05] LABS: BILIRUBIN,URINE NEGATIVE (NEG); CLARITY,URINE CLEAR; COLOR,URINE YELLOW; NITRITE,URINE NEGATIVE (NEG); PH,URINE 5.5 (<5.0-8.0); PROTEIN,URINE NEGATIVE (NEG-TRACE); UROBILINOGEN,URINE 0.2 mg/dL (0.2 mg/dL)
[2020-09-10 11:23] LABS: BACTERIA,URINE FEW /HPF (0-FEW); RBC,URINE 20-40 /HPF (0-2)
--- NOTE | 2020-09-10 12:42 | RAD ---
OB <14 WKS W/TV History: Reason: right abd pain in preg / Spl. Instructions: / History: Comparison: None. Technique: Grayscale and color Doppler imaging of the pelvis was performed using transabdominal technique. Findings: The uterus measures 7.5 x 5.1 x 3.9 cm. Nabothian cysts noted. No evidence of intrauterine gestational sac. Endometrial thickness 1.2 cm. Right ovary not identified due to positioning and overlying structures. Left ovary measures 2.4 x 2.3 x 1.5 cm. Complex dominant left ovarian follicle measures 0.7 cm. Normal Doppler flow to the ovaries bilaterally. No adnexal masses are seen. IMPRESSION: 1. No evidence of intrauterine gestational sac, may relate to early . Recommend short-term ultrasound follow-up and serial beta hCG testing. Electronically signed by: Jon Carrasco DO (09/10/2020 12:39 PM) [id number]
--- NOTE | 2020-09-10 12:43 | RAD ---
RENAL COMPLETE BILATERAL History: Reason: right flank pain / Spl. Instructions: / History: Comparison: None. Procedure: Transabdominal ultrasound images are obtained of the kidneys and bladder. Findings: Right kidney: measures 9.7 x 5.7 x 5.4 cm. Nonobstructing right intrarenal calculus. No hydronephrosis. Left kidney: measures 10.3 x 3.7 x 4.4 cm. No hydronephrosis. Urinary bladder: No urinary bladder wall thickening. Bilateral ureteral jets are identified. The IVC is normal caliber. The visualized abdominal aorta is normal caliber. IMPRESSION: 1. Nonobstructing right intrarenal calculus. No hydronephrosis. Electronically signed by: Jon Carrasco DO (09/10/2020 12:41 PM) [id number]
[2020-09-10] MEDS ORDERED: HYDR-3164 PO (13:06)
[2020-09-10] MEDS ORDERED: ONDA4TAB12 PO (13:06)
[2020-09-10 13:25] VITALS: BP 116/68
== END 2020-09-10 13:26 | disposition home or self-care (01) ==
LOC: ER 09:44
DX: O26.831 Pregnancy related renal disease, first trimester (principal); N20.0 Calculus of kidney; R11.2 Nausea with vomiting, unspecified; K50.90 Crohn's disease, unspecified, without complications; Z90.89 Acquired absence of other organs; Z90.49 Acquired absence of other specified parts of digestive tract; Z3A.00 Weeks of gestation of pregnancy not specified
CPT/HCPCS: 36415; 76770; 76801; 76817; 80053; 81001; 81025; 83690; 84702; 85025; 96361; 96374; 96375; 96376; 99285; J1200; J2405; J3010; J7040

== ENCOUNTER 2020-10-23 10:54 | Emergency (ER) | payer SELFPAY ==
[~2020-10-23] VITALS: Ht 175.3 cm; Wt 75.0 kg
[2020-10-23] MEDS ORDERED: diphenhydrAMINE 50 MG/ML VIAL IVP ONE (12:15)
[2020-10-23] MEDS ORDERED: ONDANSETRON PF 4 MG/2 ML VIAL. IV ONE (12:15)
[2020-10-23] MEDS ORDERED: IV NORMAL SALINE 1000ML BAG 1,000 ML IV ONE (12:15)
[2020-10-23] MEDS ORDERED: fentaNYL PF VIAL 100 MCG/2 ML VIAL IV ONE ×2 (12:15→13:00)
[2020-10-23 12:27] LABS: BASO % 0 % (0-3); EOS % 1 % (0-3); HEMATOCRIT 35.7 % (36.0-47.0); LYMPH # 0.9 x10^3/uL (1.0-4.8); LYMPH % 15 % (24-48); MEAN CORPUSCULAR HEMOGLOBIN 29 pg (25-35); MEAN CORPUSCULAR HGB CONC 34 g/dL (31-37); MEAN CORPUSCULAR VOLUME 86 fL (79-100); MONO # 0.4 x10^3/uL (0.0-1.1); MONO % 6 % (0-9); NEUT # 4.9 x10^3/uL (1.8-7.7); NEUT % 78 % (31-73); PLATELET COUNT 221 x10^3/uL (140-400); RED BLOOD COUNT 4.15 x10^6/uL (3.50-5.40); RED CELL DISTRIBUTION WIDTH 14.8 % (11.5-14.5); WHITE BLOOD COUNT 6.3 x10^3/uL (4.0-11.0)
[2020-10-23 12:28] LABS: BILIRUBIN,URINE NEGATIVE (NEG); CLARITY,URINE CLEAR; COLOR,URINE YELLOW; NITRITE,URINE NEGATIVE (NEG); PH,URINE 6.5 (<5.0-8.0); PROTEIN,URINE NEGATIVE (NEG-TRACE); UROBILINOGEN,URINE 0.2 mg/dL (0.2 mg/dL)
[2020-10-23 12:37] LABS: CALCIUM 9.1 mg/dL (8.5-10.1); CREATININE 0.5 mg/dL (0.6-1.0); GFR 144.9; POTASSIUM 3.2 mmol/L (3.5-5.1)
[2020-10-23 12:37] LABS: BACTERIA,URINE FEW /HPF (0-FEW); RBC,URINE 0 /HPF (0-2)
[2020-10-23 12:40] LABS: U PREG PATIENT POSITIVE (NEG)
[2020-10-23 12:43] LABS: ALBUMIN 3.3 g/dL (3.4-5.0); ALBUMIN/GLOBULIN RATIO 0.9 (1.0-1.7); MAGNESIUM 1.9 mg/dL (1.8-2.4); TOTAL BILIRUBIN 0.3 mg/dL (0.2-1.0); TOTAL PROTEIN 6.8 g/dL (6.4-8.2)
--- NOTE | 2020-10-23 13:11 | ED.ADGEN ---
Past Medical History Past Medical History: Kidney Stone, Other Additional Past Medical Histor: CROHNS Past Surgical History: Appendectomy, Cholecystectomy, Tonsillectomy Smoking Status: Never Smoker Alcohol Use: None General Adult EDM: Chief Complaint: ABDOMINAL PAIN IN HPI: HPI: Patient is a 30 year old female who presents the emergency department with complaints of left upper quadrant pain, nausea, and vomiting. Patient states she has had the symptoms for about the last week. She states she is currently , 1, para 0, with a previous stillborn at 6 months gestation. Patient denies having any diarrhea. She states she saw her OB Dr. Diehl last week who did an ultrasound and she was approximately 9 weeks . She denies any irregular vaginal discharge, vaginal bleeding, lower abdominal pain, dysuria, hematuria, diarrhea, constipation, body aches, fever, or fatigue. Patient reports that she has vomited 3 times today, she denies any blood in her vomit. She reports taking Zofran tablets at home with no relief of her vomiting. Patient states that she stopped taking her medications due to the . Her last menstrual cycle was on August 13, 2020, the patient's due date is May 202020. Review of Systems: Review of Systems: Complete ROS is negative unless otherwise noted in HPI. Current Medications: Current Medications Medications (Trade) Dose Ordered Sig/Lynda Start Time Stop Time Status Last Admin Dose Admin Diphenhydramine HCl (Benadryl) 25 mg 1X ONCE 10/23/20 12:15 10/23/20 12:16 DC 10/23/20 12:27 25 MG Fentanyl Citrate (Fentanyl 2ml Vial) 25 mcg 1X ONCE 10/23/20 13:00 10/23/20 13:01 DC 10/23/20 13:07 25 MCG Ondansetron HCl (Zofran) 4 mg 1X ONCE 10/23/20 12:15 10/23/20 12:16 DC 10/23/20 12:28 4 MG Sodium Chloride 1,000 ml @ 1,000 mls/hr 1X ONCE 10/23/20 12:15 10/23/20 13:14 DC 10/23/20 12:27 1,000 MLS/HR Allergies: Allergies: Allergies Coded Allergies Type Severity Reaction Last Updated Verified metoclopramide Allergy Intermediate rash, lockjaw 09/10/20 Yes prochlorperazine Allergy Intermediate rash, lockjaw 09/10/20 Yes morphine Adverse Reaction Intermediate ITCHING 07/11/20 Yes Physical Exam: PE: See Above Constitutional: Well developed, well nourished, no acute distress, non-toxic appearance. [] HENT: Normocephalic, atraumatic, bilateral external ears normal, nose normal. [] Eyes: PERRLA, EOMI, conjunctiva normal, no discharge. [] Neck: Normal range of motion, no stridor. [] Cardiovascular:Heart rate regular rhythm Lungs & Thorax: Respirations even and unlabored, no retractions, no respiratory distress Abdomen: soft, left upper quadrant tenderness to palpation, no rebound tenderness, no guarding Skin: Warm, dry, no erythema, no rash. [] Extremities: No cyanosis, ROM intact, no edema. [] Neurologic: Alert and oriented X 3, no focal deficits noted. [] Psychologic: Affect normal, judgement normal, mood normal. [] Current Patient Data: Labs: Laboratory Tests Test 10/23/20 11:15 10/23/20 11:33 Urine Collection Type Unknown Urine Color Yellow Urine Clarity Clear Urine pH 6.5 (<5.0-8.0) Urine Specific [place] 1.020 (1.000-1.030) Urine Protein Negative mg/dL (NEG-TRACE) Urine Glucose (UA) Negative mg/dL (NEG) Urine Ketones (Stick) Trace mg/dL (NEG) Urine Blood Negative (NEG) Urine Nitrite Negative (NEG) Urine Bilirubin Negative (NEG) Urine Urobilinogen Dipstick 0.2 mg/dL (0.2 mg/dL) Urine Leukocyte Esterase Negative (NEG) Urine RBC 0 /HPF (0-2) Urine WBC 1-4 /HPF (0-4) Urine Squamous Epithelial Cells Mod /LPF Urine Bacteria Few /HPF (0-FEW) Urine Mucus Marked /LPF Urine Test Positive (NEG) White Blood Count 6.3 x10^3/uL (4.0-11.0) Red Blood Count 4.15 x10^6/uL (3.50-5.40) Hemoglobin 12.0 g/dL (12.0-15.5) Hematocrit 35.7 % (36.0-47.0) L Mean Corpuscular Volume 86 fL (79-100) Mean Corpuscular Hemoglobin 29 pg (25-35) Mean Corpuscular Hemoglobin Concent 34 g/dL (31-37) Red Cell Distribution Width 14.8 % (11.5-14.5) H Platelet Count 221 x10^3/uL (140-400) Neutrophils (%) (Auto) 78 % (31-73) H Lymphocytes (%) (Auto) 15 % (24-48) L Monocytes (%) (Auto) 6 % (0-9) Eosinophils (%) (Auto) 1 % (0-3) Basophils (%) (Auto) 0 % (0-3) Neutrophils # (Auto) 4.9 x10^3/uL (1.8-7.7) Lymphocytes # (Auto) 0.9 x10^3/uL (1.0-4.8) L Monocytes # (Auto) 0.4 x10^3/uL (0.0-1.1) Eosinophils # (Auto) 0.0 x10^3/uL (0.0-0.7) Basophils # (Auto) 0.0 x10^3/uL (0.0-0.2) Sodium Level 138 mmol/L (136-145) Potassium Level 3.2 mmol/L (3.5-5.1) L Chloride Level 105 mmol/L (98-107) Carbon Dioxide Level 22 mmol/L (21-32) Anion Gap 11 (6-14) Blood Urea Nitrogen 9 mg/dL (7-20) Creatinine 0.5 mg/dL (0.6-1.0) L Estimated GFR (Cockcroft-Gault) 144.9 BUN/Creatinine Ratio 18 (6-20) Glucose Level 99 mg/dL (70-99) Calcium Level 9.1 mg/dL (8.5-10.1) Magnesium Level 1.9 mg/dL (1.8-2.4) Total Bilirubin 0.3 mg/dL (0.2-1.0) Aspartate Amino Transferase (AST) 36 U/L (15-37) Alanine Aminotransferase (ALT) 145 U/L (14-59) H Alkaline Phosphatase 132 U/L (46-116) H Total Protein 6.8 g/dL (6.4-8.2) Albumin 3.3 g/dL (3.4-5.0) L Albumin/Globulin Ratio 0.9 (1.0-1.7) L Lipase 94 U/L (73-393) Laboratory Tests 10/23/20 11:33 Laboratory Tests 10/23/20 11:33 Vital Signs: Vital Signs Date Time Temp Pulse Resp B/P (MAP) Pulse Ox O2 Delivery O2 Flow Rate FiO2 10/23/20 13:07 16 100 Room Air 10/23/20 12:54 90 111/63 (79) 10/23/20 11:20 98.3 98.3 EKG: EKG: [] Heart Score: Risk Factors: Risk Factors: DM, Current or recent (<one month) smoker, HTN, HLP, family history of CAD, obesity. Risk Scores: Score 0 - 3: 2.5% MACE over next 6 weeks - Discharge Home Score 4 - 6: 20.3% MACE over next 6 weeks - Admit for Clinical Observation Score 7 - 10: 72.7% MACE over next 6 weeks - Early Invasive Strategies Radiology/Procedures: Radiology/Procedures: [] Course & Med Decision Making: Course & Med Decision Making Pertinent Labs and Imaging studies reviewed. (See chart for details) 30-year-old female presents to the emergency department with complaints of nausea, vomiting, and left upper quadrant abdominal pain for the last week Patient reports that she is 9 weeks and had a ultrasound in the office last week that confirmed the , she states that the baby measured 9 weeks few days. Patient denies any lower abdominal pain, vaginal bleeding, or irregular vaginal discharge. Labs included a CBC, CMP, UA, lipase, CBC is unremarkable; CMP revealed a potassium of 3.2, elevated ALT of 145, alk phos of 132, normal lipase otherwise unremarkable. Patient's urinalysis was likely contaminated with 1-4 white blood cells, few bacteria, moderate squames, and patient was asymptomatic. Patient was given 25 mg of Benadryl, 4 mg of Zofran, 1 L of normal saline, and a total of 50 mcg of fentanyl in the ER. She reported relief of her nausea and decreased pain. Patient declined admission to the hospital for hyperemesis, she reported she will follow-up with her [facility]. I advised her to call her [facility] this afternoon and notify them of her elevated alk phos of 132 and elevated ALT of 145. I encouraged her to return to the ER if symptoms worsened or fever deve lop. Patient verbalized an understanding of home care, medications, follow-up, and return to ED instructions and was in agreement with the plan of care. [id number] spoke with Dr. Durbin and advised to the patient in the ER and the plan of care, Dr. Durbin is in agreement with plan of care. [] Dragon Disclaimer: Dragon Disclaimer: This electronic medical record was generated, in whole or in part, using a voice recognition dictation system. Departure Departure Impression: Primary Impression: Hyperemesis gravidarum Additional Impression: Left upper quadrant abdominal pain during in first trimester Disposition: 01 DC HOME SELF CARE/HOMELESS Condition: STABLE Referrals: LC ARCE DO (PCP) Patient Instructions: Abdominal Pain During , [id number], Diet - Hyp eremesis Gravidarum, Hyperemesis Gravidarum Additional Instructions: Fill prescription and use them as directed. Recommend clear fluids for the next 24 hours. Then you may advance to bland foods such as bananas, rice, applesauce, and dry toast. Lab work today revealed elevated alk phos of 132 and elevated ALT of 145, call your OBGyn this afternoon and inform them of your labs, recommend follow up in 1-2 days. Return to the emergency room if your symptoms worsen. Scripts Ondansetron (ONDANSETRON ODT) 4 Mg Tab.rapdis 1 TAB PO PRN Q6-8HRS PRN for NAUSEA/VOMITING for 4 Days, #16 TAB 0 Refills Prov: SHAWN STILES APRN 10/23/20 Problem Qualifiers SHAWN STILES APRN Oct 23, 2020 13:11
[2020-10-23] MEDS ORDERED: ONDA4TAB12 PO (13:50)
[2020-10-23 13:52] VITALS: BP 118/71
== END 2020-10-23 14:03 | disposition home or self-care (01) ==
LOC: ER 10:54
DX: O21.0 Mild hyperemesis gravidarum (principal); R10.12 Left upper quadrant pain; Z87.442 Personal history of urinary calculi; Z90.89 Acquired absence of other organs; Z90.49 Acquired absence of other specified parts of digestive tract; Z88.6 Allergy status to analgesic agent; Z88.8 Allergy status to other drugs, medicaments and biological substances
CPT/HCPCS: 36415; 80053; 81001; 81025; 83690; 83735; 85025; 96361; 96374; 96375; 96376; 99284; J1200; J2405; J3010; J7030

== ENCOUNTER 2020-12-10 17:12 | Emergency (ER) | payer SELFPAY ==
[~2020-12-10] VITALS: Ht 175.3 cm; Wt 76.4 kg
[2020-12-10] MEDS ORDERED: IV NORMAL SALINE 1000ML BAG 1,000 ML IV ONE (17:30)
[2020-12-10 17:39] LABS: BILIRUBIN,URINE NEGATIVE (NEG); CLARITY,URINE CLEAR; COLOR,URINE YELLOW; NITRITE,URINE NEGATIVE (NEG); PH,URINE 6.5 (<5.0-8.0); PROTEIN,URINE NEGATIVE (NEG-TRACE); UROBILINOGEN,URINE 0.2 mg/dL (0.2 mg/dL)
[2020-12-10 17:43] LABS: BASO % 0 % (0-3); EOS % 1 % (0-3); HEMATOCRIT 31.1 % (36.0-47.0); HEMOGLOBIN 10.6 g/dL (12.0-15.5); LYMPH # 1.3 x10^3/uL (1.0-4.8); LYMPH % 17 % (24-48); MEAN CORPUSCULAR HEMOGLOBIN 30 pg (25-35); MEAN CORPUSCULAR HGB CONC 34 g/dL (31-37); MEAN CORPUSCULAR VOLUME 88 fL (79-100); MONO # 0.5 x10^3/uL (0.0-1.1); MONO % 7 % (0-9); NEUT % 76 % (31-73); PLATELET COUNT 193 x10^3/uL (140-400); RED BLOOD COUNT 3.55 x10^6/uL (3.50-5.40); RED CELL DISTRIBUTION WIDTH 16.3 % (11.5-14.5); WHITE BLOOD COUNT 7.9 x10^3/uL (4.0-11.0)
[2020-12-10 17:46] LABS: BARBITURATES NEG (NEG); BENZODIAZEPINES NEG (NEG); CANNABINOIDS NEG (NEG); COCAINE NEG (NEG); METHADONE NEG (NEG); OPIATES NEG (NEG); PHENCYCLIDINE NEG (NEG)
[2020-12-10 17:48] LABS: AMPHETAMINE/METHAMPHETAMINE NEG (NEG)
[2020-12-10 17:52] LABS: CALCIUM 7.8 mg/dL (8.5-10.1); CREATININE 0.6 mg/dL (0.6-1.0); GFR 117.4; POTASSIUM 3.4 mmol/L (3.5-5.1)
[2020-12-10 17:57] LABS: BACTERIA,URINE FEW /HPF (0-FEW); RBC,URINE TNTC /HPF (0-2)
[2020-12-10] MEDS ORDERED: diphenhydrAMINE 50 MG/ML VIAL IVP ONE (18:00)
[2020-12-10] MEDS ORDERED: fentaNYL PF VIAL 100 MCG/2 ML VIAL IVP ONE ×2 (18:00→18:45)
[2020-12-10] MEDS ORDERED: ONDANSETRON PF 4 MG/2 ML VIAL. IVP ONE ×2 (18:00→18:45)
[2020-12-10 18:01] LABS: ALBUMIN 2.9 g/dL (3.4-5.0); ALBUMIN/GLOBULIN RATIO 0.9 (1.0-1.7); TOTAL BILIRUBIN 0.2 mg/dL (0.2-1.0); TOTAL PROTEIN 6.3 g/dL (6.4-8.2)
[2020-12-10] MEDS ORDERED: ONDA4TAB12 PO (18:47)
--- NOTE | 2020-12-10 18:47 | PHYS DOC ---
Past Medical History Past Medical History: Kidney Stone, Other Additional Past Medical Histor: CROHNS Past Surgical History: Appendectomy, Cholecystectomy, Tonsillectomy Smoking Status: Never Smoker Alcohol Use: None General Adult EDM: Chief Complaint: GI PROBLEM HPI: HPI: Patient is a 30 year old male with history of Crohn's presenting today complaining of 8 out of 10 sharp intermittent left sided abdominal pain specifically lower quadrant, for 2 weeks, she states this is from her Crohn's fl areup. She is also complaining of nausea, vomiting and diarrhea. She states she has had problems with Crohn's since she discovered she was . She is currently 16 weeks 2 para 1. She states she follows up with her [employer] [facility] for her OB care and also has a GI doctor for Crohn's. She states she was on Humira and they took her off Humira because she is . She states since then she has had many flareups. She is requesting something for pain including Zofran and Benadryl with it. Review of Systems: Review of Systems: Constitutional: Denies fever or chills. [] Eyes: Denies change in visual acuity. [] HENT: Denies nasal congestion or sore throat. [] Respiratory: Denies cough or shortness of breath. [] Cardiovascular: Denies chest pain or edema. [] GI: Reports left lower quadrant abdominal pain, nausea vomiting and diarrhea, denies any hematemesis or melena : Denies dysuria. [] Musculoskeletal: Denies back pain or joint pain. [] Integument: Denies rash. [] Neurologic: Denies headache, focal weakness or sensory changes. [] Psychiatric: Denies depression or anxiety. [] Heart Score: Risk Factors: Risk Factors: DM, Current or recent (<one month) smoker, HTN, HLP, family history of CAD, obesity. Risk Scores: Score 0 - 3: 2.5% MACE over next 6 weeks - Discharge Home Score 4 - 6: 20.3% MACE over next 6 weeks - Admit for Clinical Observation Score 7 - 10: 72.7% MACE over next 6 weeks - Early Invasive Strategies Current Medications: Current Medications Medications (Trade) Dose Ordered Sig/Lynda Start Time Stop Time Status Last Admin Dose Admin Diphenhydramine HCl (Benadryl) 25 mg 1X ONCE 12/10/20 18:00 12/10/20 18:01 DC 12/10/20 17:44 25 MG Fentanyl Citrate (Fentanyl 2ml Vial) 50 mcg 1X ONCE 12/10/20 18:45 12/10/20 18:46 UNV Ondansetron HCl (Zofran) 4 mg 1X ONCE 12/10/20 18:45 12/10/20 18:46 UNV Sodium Chloride 1,000 ml @ 1,000 mls/hr 1X ONCE 12/10/20 17:30 12/10/20 18:29 DC 12/10/20 17:43 1,000 MLS/HR Allergies: Allergies: Allergies Coded Allergies Type Severity Reaction Last Updated Verified metoclopramide Allergy Intermediate rash, lockjaw 09/10/20 Yes prochlorperazine Allergy Intermediate rash, lockjaw 09/10/20 Yes morphine Adverse Reaction Intermediate ITCHING 07/11/20 Yes Physical Exam: PE: Constitutional: Well developed, well nourished, no acute distress, non-toxic appearance. [] HENT: Normocephalic, atraumatic, bilateral external ears normal, oropharynx moist, no oral exudates, nose normal. [] Eyes: PERRLA, EOMI, conjunctiva normal, no discharge. [] Neck: Normal range of motion, no tenderness, supple, no stridor. [] Cardiovascular:Heart rate regular rhythm, no murmur [] Lungs & Thorax: Bilateral breath sounds clear to auscultation [] Abdomen: Bowel sounds normal, soft, no tenderness, no masses, no pulsatile masses. [] Skin: Warm, dry, no erythema, no rash. [] Back: No tenderness, no CVA tenderness. [] Extremities: No tenderness, no cyanosis, no clubbing, ROM intact, no edema. [] Neurologic: Alert and oriented X 3, normal motor function, normal sensory function, no focal deficits noted. [] Psychologic: Affect normal, judgement normal, mood normal. [] Current Patient Data: Labs: Laboratory Tests Test 12/10/20 17:24 12/10/20 17:31 12/10/20 17:33 Urine Collection Type Void Urine Color Yellow Urine Clarity Clear Urine pH 6.5 (<5.0-8.0) Urine Specific [place] 1.020 (1.000-1.030) Urine Protein Negative mg/dL (NEG-TRACE) Urine Glucose (UA) 250 mg/dL (NEG) Urine Ketones (Stick) Negative mg/dL (NEG) Urine Blood Large (NEG) Urine Nitrite Negative (NEG) Urine Bilirubin Negative (NEG) Urine Urobilinogen Dipstick 0.2 mg/dL (0.2 mg/dL) Urine Leukocyte Esterase Negative (NEG) Urine RBC Tntc /HPF (0-2) Urine WBC 1-4 /HPF (0-4) Urine Squamous Epithelial Cells Many /LPF Urine Bacteria Few /HPF (0-FEW) Urine Mucus Slight /LPF Urine Opiates Screen Neg (NEG) Urine Methadone Screen Neg (NEG) Urine Barbiturates Neg (NEG) Urine Phencyclidine Screen Neg (NEG) Urine Amphetamine/Methamphetamine Neg (NEG) Urine Benzodiazepines Screen Neg (NEG) Urine Cocaine Screen Neg (NEG) Urine Cannabinoids Screen Neg (NEG) Urine Ethyl Alcohol Neg (NEG) POC Urine HCG, Qualitative Hcg positive (Negative) White Blood Count 7.9 x10^3/uL (4.0-11.0) Red Blood Count 3.55 x10^6/uL (3.50-5.40) Hemoglobin 10.6 g/dL (12.0-15.5) L Hematocrit 31.1 % (36.0-47.0) L Mean Corpuscular Volume 88 fL (79-100) Mean Corpuscular Hemoglobin 30 pg (25-35) Mean Corpuscular Hemoglobin Concent 34 g/dL (31-37) Red Cell Distribution Width 16.3 % (11.5-14.5) H Platelet Count 193 x10^3/uL (140-400) Neutrophils (%) (Auto) 76 % (31-73) H Lymphocytes (%) (Auto) 17 % (24-48) L Monocytes (%) (Auto) 7 % (0-9) Eosinophils (%) (Auto) 1 % (0-3) Basophils (%) (Auto) 0 % (0-3) Neutrophils # (Auto) 6.0 x10^3/uL (1.8-7.7) Lymphocytes # (Auto) 1.3 x10^3/uL (1.0-4.8) Monocytes # (Auto) 0.5 x10^3/uL (0.0-1.1) Eosinophils # (Auto) 0.0 x10^3/uL (0.0-0.7) Basophils # (Auto) 0.0 x10^3/uL (0.0-0.2) Sodium Level 136 mmol/L (136-145) Potassium Level 3.4 mmol/L (3.5-5.1) L Chloride Level 105 mmol/L (98-107) Carbon Dioxide Level 22 mmol/L (21-32) Anion Gap 9 (6-14) Blood Urea Nitrogen 9 mg/dL (7-20) Creatinine 0.6 mg/dL (0.6-1.0) Estimated GFR (Cockcroft-Gault) 117.4 BUN/Creatinine Ratio 15 (6-20) Glucose Level 85 mg/dL (70-99) Calcium Level 7.8 mg/dL (8.5-10.1) L Total Bilirubin 0.2 mg/dL (0.2-1.0) Aspartate Amino Transferase (AST) 11 U/L (15-37) L Alanine Aminotransferase (ALT) 19 U/L (14-59) Alkaline Phosphatase 51 U/L (46-116) Total Protein 6.3 g/dL (6.4-8.2) L Albumin 2.9 g/dL (3.4-5.0) L Albumin/Globulin Ratio 0.9 (1.0-1.7) L Lipase 134 U/L (73-393) Ethyl Alcohol Level < 10 mg/dL (0-10) Laboratory Tests 12/10/20 17:33 Laboratory Tests 12/10/20 17:33 Vital Signs: Vital Signs Date Time Temp Pulse Resp B/P (MAP) Pulse Ox O2 Delivery O2 Flow Rate FiO2 12/10/20 17:46 22 99 Room Air 12/10/20 17:20 98.5 129 122/76 (91) 98.5 EKG: EKG: [] Radiology/Procedures: Radiology/Procedures: [] Course & Med Decision Making: Course & Med Decision Making Pertinent Labs and Imaging studies reviewed. (See chart for details) This is a 30-year-old female patient 2 para 1 currently 16 weeks presenting to the ED today complaining of Crohn's flareup with left lower quadrant abdominal pain, nausea vomiting and diarrhea. Symptoms have been intermittent throughout this . She follows up with a GI doctor. She was on Humira and was taken off because she is . She states she also follows up with her [employer] [facility]. She herself is requesting something for pain, with Zofran and Benadryl I did discuss the dangers of pain medicine specifically narcotics with but she chose to proceed. CBC with a normal WBC otherwise no acute findings, CMP with no acute findings, UA negative for infection. She was given 2 doses of fentanyl total of 100 mcg, 8 mg of Zofran, 25 mg of Benadryl and a liter of fluid and discharged to home. Encouraged to continue following up with her specialist especially the GI doctor and [facility] EXP[facility]. heart tones will be performed prior to discharge Dragon Disclaimer: Dragon Disclaimer: This electronic medical record was generated, in whole or in part, using a voice recognition dictation system. Departure Departure Impression: Primary Impression: Nausea & vomiting Qualified Codes: R11.2 - Nausea with vomiting, unspecified Additional Impressions: Diarrhea Qualified Codes: R19.7 - Diarrhea, unspecified Left lower quadrant abdominal pain Disposition: 01 DC HOME SELF CARE/HOMELESS Condition: STABLE Referrals: LC ARCE DO (PCP) follow up in the course of this week Patient Instructions: Diarrhea, [id number], Nausea and Vomiting, [id number] Additional Instructions: You were evaluated in the emergency room for abdominal pain with nausea vomiting and diarrhea. Please continue following up with your [facility] EXPERT as well as your GI doctor. Come back to the ED at any point symptoms worsen Scripts Ondansetron (ONDANSETRON ODT) 4 Mg Tab.rapdis 1 TAB PO PRN Q6-8HRS, #16 TAB Prov: STACIA ANDERSEN APRN 12/10/20 STACIA ANDERSEN APRN Dec 10, 2020 18:47
[2020-12-10 19:11] VITALS: BP 98/58
== END 2020-12-10 19:20 | disposition home or self-care (01) ==
LOC: ER 17:12
DX: O21.9 Vomiting of pregnancy, unspecified (principal); R19.7 Diarrhea, unspecified; R10.32 Left lower quadrant pain; K50.90 Crohn's disease, unspecified, without complications; Z87.442 Personal history of urinary calculi; Z90.49 Acquired absence of other specified parts of digestive tract; Z90.89 Acquired absence of other organs; Z88.6 Allergy status to analgesic agent; Z88.8 Allergy status to other drugs, medicaments and biological substances; Z3A.16 16 weeks gestation of pregnancy
CPT/HCPCS: 29125; 36415; 80053; 80307; 81001; 81025; 83690; 85025; 96374; 96375; 96376; 99284; G0480; J1200; J2405; J3010; J7030

== ENCOUNTER 2021-01-05 13:58 | Emergency (ER) | payer SELFPAY ==
[~2021-01-05] VITALS: Ht 175.3 cm; Wt 76.0 kg
[2021-01-05] MEDS ORDERED: IV NORMAL SALINE 1000ML BAG 1,000 ML IV ONE ×2 (14:15→17:15)
[2021-01-05 14:28] LABS: BILIRUBIN,URINE NEGATIVE (NEG); CLARITY,URINE CLEAR; COLOR,URINE YELLOW; NITRITE,URINE NEGATIVE (NEG); PROTEIN,URINE NEGATIVE (NEG-TRACE); UROBILINOGEN,URINE 0.2 mg/dL (0.2 mg/dL)
--- NOTE | 2021-01-05 14:32 | PHYS DOC ---
Past Medical History Past Medical History: Kidney Stone, Other Additional Past Medical Histor: CROHNS Past Surgical History: Appendectomy, Cholecystectomy Smoking Status: Never Smoker Alcohol Use: None General Adult EDM: Chief Complaint: FLANK PAIN HPI: HPI: 31-year-old female presenting the emergency department today with right- sided flank pain. Her pain started a few days ago. Its sharp shooting nonradiating. Its in the right lower quadrant. She has a history of an appendectomy and a cholecystectomy. She is approximately 19 weeks by last menstrual period. She denies any recent traumatic injuries. She denies any recent car wrecks. She denies any vaginal bleeding Review of systems is negative for chest pain shortness of breath vomiting fevers chills. All other review of systems negative. ED course: 31-year-old female presenting with right-sided flank pain. heart tones performed by nursing staff here in the emergency department between 150 and 160. On arrival the patient is afebrile. Heart rate 108. Otherwise blood pressure within normal limits. Labs show normal CBC. Chemistry panel unremarkable. Urine analysis shows blood. A few bacteria present. [employer] Sales[employer] reports that the patient has right-sided hydronephrosis. Unable to visualize a stone. Patient's clinical history is suggestive of ureterolithiasis with blood in her urine. Given the patient has bacteria in her urine we will give her Keflex along with oral hydrocodone. While she was in the emergency department we had OB come down to assess the fetus. They report normal heart tones. Will discharge to follow-up with OB in 1 to 2 days and urology in 3 to 5 days if her pain persists. Review of Systems: Review of Systems: Constitutional: Denies fever or chills. [] Eyes: Denies change in visual acuity. [] HENT: Denies nasal congestion or sore throat. [] Respiratory: Denies cough or shortness of breath. [] Cardiovascular: Denies chest pain or edema. [] GI: Denies bloody stools or diarrhea. [] : Denies dysuria. [] Musculoskeletal: Denies back pain or joint pain. [] Integument: Denies rash. [] Neurologic: Denies headache, focal weakness or sensory changes. [] Endocrine: Denies polyuria or polydipsia. [] Lymphatic: Denies swollen glands. [] Psychiatric: Denies depression or anxiety. [] Heart Score: C/O Chest Pain: No Risk Factors: Risk Factors: DM, Current or recent (<one month) smoker, HTN, HLP, family history of CAD, obesity. Risk Scores: Score 0 - 3: 2.5% MACE over next 6 weeks - Discharge Home Score 4 - 6: 20.3% MACE over next 6 weeks - Admit for Clinical Observation Score 7 - 10: 72.7% MACE over next 6 weeks - Early Invasive Strategies Current Medications: Current Medications Medications (Trade) Dose Ordered Sig/Lynda Start Time Stop Time Status Last Admin Dose Admin Sodium Chloride 1,000 ml @ 1,000 mls/hr Q1H ONCE 01/05/21 14:15 01/05/21 15:14 Allergies: Allergies: Allergies Coded Allergies Type Severity Reaction Last Updated Verified metoclopramide Allergy Intermediate rash, lockjaw 09/10/20 Yes prochlorperazine Allergy Intermediate rash, lockjaw 09/10/20 Yes morphine Adverse Reaction Intermediate ITCHING 07/11/20 Yes Physical Exam: PE: Constitutional: Well developed, well nourished, no acute distress, non-toxic appearance. [] HENT: Normocephalic, atraumatic, bilateral external ears normal, oropharynx moist, no oral exudates, nose normal. [] Eyes: PERRLA, EOMI, conjunctiva normal, no discharge. [] Neck: Normal range of motion, no tenderness, supple, no stridor. [] Cardiovascular:Heart rate regular rhythm, no murmur [] Lungs & Thorax: Bilateral breath sounds clear to auscultation [] Abdomen: Bowel sounds normal, soft, no tenderness, no masses, no pulsatile masses. [] No rebound tenderness or guarding. Negative McBurney's point. Negative Marin sign. Skin: Warm, dry, no erythema, no rash. [] Back: No tenderness, no CVA tenderness. [] Extremities: No tenderness, no cyanosis, no clubbing, ROM intact, no edema. [] Neurologic: Alert and oriented X 3, normal motor function, normal sensory function, no focal deficits noted. [] Psychologic: Affect normal, judgement normal, mood normal. [] Current Patient Data: Labs: Laboratory Tests Test 01/05/21 14:20 POC Urine HCG, Qualitative Hcg positive (Negative) Vital Signs: Vital Signs Date Time Temp Pulse Resp B/P (MAP) Pulse Ox O2 Delivery O2 Flow Rate FiO2 01/05/21 14:09 98.1 108 16 128/73 (91) 100 Room Air 98.1 EKG: EKG: [] Radiology/Procedures: Radiology/Procedures: [] Course & Med Decision Making: Course & Med Decision Making Pertinent Labs and Imaging studies reviewed. (See chart for details) [] Dragon Disclaimer: Dragon Disclaimer: This electronic medical record was generated, in whole or in part, using a voice recognition dictation system. Departure Departure Impression: Primary Impression: Flank pain Additional Impressions: Ureterolithiasis Bacteriuria Disposition: 01 DC HOME SELF CARE/HOMELESS Admitting Physician: MARCO Condition: STABLE Referrals: LC ARCE DO (PCP) Patient Instructions: Kidney Stones, [id number] Additional Instructions: EMERGENCY DEPARTMENT GENERAL DISCHARGE INSTRUCTIONS Follow-up with your primary physician in 1 to 2 days. Return to the emergency department if you have any new or concerning findings. Thank you for coming to [facility] Emergency Department (ED) today and trusting us with you care. We trust that you had a positive experience in our Emergency Department. If you wish to speak to the department management, you may call the Director at [phone]. Follow up is important in emergency/acute care visits. This condition should be evaluated by your primary care physician and any necessary consulting services for continued management within a few days (1-2) after discharge. Return to the emergency department if you have any new or concerning symptoms including but not limited to fever, chills, nausea, vomiting, intractable pain, any new rashes, chest pain, shortness of breath, uncontrolled bleeding, difficulty breathing, and/or vision loss. 1. Do you have a private Doctor? If you do not have a private doctor, please ask for a resource list of physicians or clinics that may be able to assist you with follow up care. 2. If a lab test or culture has been done and does not come back immediately, your results will be reviewed and you will be notified if you need a change in treatment. 3. Your care today has been supervised by a physician who is specially trained in emergency care. Many problems require more than one evaluation for a complete diagnosis and treatment. We recommend that you schedule your follow up appointment as recommended to ensure complete treatment of you illness or injury. If you are unable to obtain follow up care and continue to have a problem, or if your condition worsens, we recommend that you return to the ED. 4. We are not able to safely determine your condition over the phone nor are we able to give sound medical advice over the phone. For these safety reasons, if you call for medical advice we will ask you to come to the ED for further evaluation. IF YOUR SYMPTOMS WORSEN OR NEW SYMPTOMS DEVELOP, OR YOU HAVE CONCERNS ABOUT YOUR CONDITION; OR IF YOUR CONDITION WORSENS WHILE YOU ARE WAITING FOR YOUR FOLLOW UP APPOINTMENT; EITHER CONTACT YOUR PRIMARY CARE DOCTOR, THE PHYSICIAN WHOSE NAME AND NUMBER YOU WERE GIVEN, OR RETURN TO THE ED IMMEDIATELY. Scripts Cephalexin (KEFLEX) 750 Mg Capsule 1 CAP PO BID for 7 Days, #14 CAP 0 Refills Prov: YUNIER AVILA MD 01/05/21 Hydrocodone Bit/Acetaminophen (HYDROCODONE-APAP 5-325 ) 1 Tab Tablet 1 TAB PO PRN Q8HRS PRN for sev, #8 TAB 0 Refills Prov: YUNIER AVILA MD 01/05/21 YUNIER AVILA MD Jan 05, 2021 14:32
[2021-01-05 14:36] LABS: BACTERIA,URINE FEW /HPF (0-FEW); RBC,URINE >40 /HPF (0-2); WBC,URINE OCC /HPF (0-4)
[2021-01-05 14:54] LABS: BASO % 0 % (0-3); EOS % 1 % (0-3); HEMATOCRIT 33.1 % (36.0-47.0); HEMOGLOBIN 11.2 g/dL (12.0-15.5); LYMPH % 11 % (24-48); MEAN CORPUSCULAR HEMOGLOBIN 30 pg (25-35); MEAN CORPUSCULAR HGB CONC 34 g/dL (31-37); MEAN CORPUSCULAR VOLUME 88 fL (79-100); MONO # 0.4 x10^3/uL (0.0-1.1); MONO % 5 % (0-9); NEUT # 7.2 x10^3/uL (1.8-7.7); NEUT % 83 % (31-73); PLATELET COUNT 209 x10^3/uL (140-400); RED BLOOD COUNT 3.77 x10^6/uL (3.50-5.40); RED CELL DISTRIBUTION WIDTH 15.4 % (11.5-14.5); WHITE BLOOD COUNT 8.6 x10^3/uL (4.0-11.0)
[2021-01-05] MEDS: MORPHINE SULFATE 2 MG/ML VIAL. IV PRN ×2 (14:58→16:14)
[2021-01-05 15:06] LABS: CALCIUM 8.3 mg/dL (8.5-10.1); CREATININE 0.6 mg/dL (0.6-1.0); GFR 116.6; POTASSIUM 3.6 mmol/L (3.5-5.1)
[2021-01-05 15:12] LABS: ALBUMIN 2.7 g/dL (3.4-5.0); ALBUMIN/GLOBULIN RATIO 0.8 (1.0-1.7); TOTAL BILIRUBIN 0.3 mg/dL (0.2-1.0); TOTAL PROTEIN 6.3 g/dL (6.4-8.2)
[2021-01-05 17:15] VITALS: BP 109/65
[2021-01-05] MEDS ORDERED: MORPHINE SULFATE 2 MG/ML VIAL. IV PRN (17:15)
[2021-01-05] MEDS ORDERED: HYDR-2761 PO (17:38)
[2021-01-05] MEDS ORDERED: CEPH750C9 PO (17:38)
--- NOTE | 2021-01-05 18:07 | RAD ---
STUDY: Complete renal sonogram INDICATION: Flank pain. 20 weeks . COMPARISON: 09/10/2020 TECHNIQUE: Real-time grayscale and color Doppler sonographic evaluation of both kidneys. The bladder was also evaluated. FINDINGS: Right kidney: Measures 12.2 cm in length. Mild caliectasis without overt hydronephrosis. Unremarkable renal cortex. Left kidney: Measures 12.2 cm in length. No collecting system dilatation. Unremarkable renal cortex. Bladder: No localized wall thickening or layering debris. Miscellaneous: None. IMPRESSION: Only mild caliectasis on the right and no intrarenal collecting system dilatation on the left. No sto aditya or renal parenchymal abnormality seen on either side. Unremarkable bladder. Electronically signed by: ANJANA SANTOS MD (01/05/2021 6:04 PM) [facility]
== END 2021-01-05 18:12 | disposition home or self-care (01) ==
LOC: ER 13:58
DX: O26.892 Other specified pregnancy related conditions, second trimester (principal); N20.1 Calculus of ureter; R82.71 Bacteriuria; Z87.442 Personal history of urinary calculi; Z90.49 Acquired absence of other specified parts of digestive tract; Z90.89 Acquired absence of other organs; Z3A.19 19 weeks gestation of pregnancy
CPT/HCPCS: 36415; 76770; 80053; 81001; 81025; 83690; 85025; 86850; 86900; 86901; 96361; 96374; 96376; 99285; J2270; J7030

== ENCOUNTER 2021-01-13 21:36 | Emergency (ER) | payer SELFPAY ==
[~2021-01-13] VITALS: Ht 175.3 cm; Wt 78.2 kg
[~2021-01-13 21:36] MED LIST changes: +CEPH750C9 PO; +HYDR-2761 PO
[2021-01-13 22:03] LABS: BILIRUBIN,URINE NEGATIVE (NEG); CLARITY,URINE CLEAR; COLOR,URINE YELLOW; NITRITE,URINE NEGATIVE (NEG); PROTEIN,URINE NEGATIVE (NEG-TRACE); UROBILINOGEN,URINE 0.2 mg/dL (0.2 mg/dL)
[2021-01-13 22:13] LABS: BACTERIA,URINE FEW /HPF (0-FEW); RBC,URINE TNTC /HPF (0-2)
[2021-01-13 22:30] VITALS: BP 119/56
[2021-01-13] MEDS ORDERED: HYDROcodone/APAP 5/325MG 1 TAB TABLET PO ONE (22:30)
[2021-01-13] MEDS ORDERED: ONDANSETRON ODT 4 MG TAB.RAPDIS. PO ONE (22:30)
[2021-01-13] MEDS ORDERED: HYDR-2759 PO (22:34)
[2021-01-13] MEDS ORDERED: NITR100C62 PO (22:34)
[2021-01-13] MEDS ORDERED: ONDA4TAB7 PO (22:34)
--- NOTE | 2021-01-13 22:34 | PHYS DOC ---
Past Medical History Past Medical History: Kidney Stone, Other Additional Past Medical Histor: CROHNS Past Surgical History: Appendectomy, Cholecystectomy Smoking Status: Never Smoker Alcohol Use: None General Adult EDM: Chief Complaint: ABDOMINAL PAIN HPI: HPI: Patient is a 31 year old female who is 19 weeks presents with a chief complaint of right flank pain. Patient states approximately 2 weeks ago she was diagnosed with a kidney stone. Patient states since then she has had pain in the same location right flank right on and off for 2 weeks. Patient states she has been taking Tylenol with no relief. Patient also complains of nausea. Patient states her entire she has been nauseous. heart tones obtained heart rate within normal limits. Patient feels the baby moving. She denies any vaginal discharge or vaginal bleeding. On exam patient's abdomen is soft without rebound or guarding. Patient has a past surgical history of cholecystectomy and appendectomy. No acute distress. Review of Systems: Review of Systems: Review of systems: Constitutional symptoms- No fever, no chills. Eyes- No Discharge, No Visual Loss Respiratory symptoms- No shortness of breath, No wheezing, No Dyspnea on Exertion Cardiovascular Systems; No chest pain, No Palpitations, No syncope Gastrointestinal symptoms: NO abdominal pain, no nausea, no vomiting or diarrhea. Genitourinary symptoms: No dysuria. Positive flank pain positive denies vaginal discharge or bleeding Musculoskeletal symptoms: No back pain No extremity pain. NEUROLOGICAL Symptoms: No headache, no generalized weakness; No focal Weakness Heart Score: C/O Chest Pain: N/A Risk Factors: Risk Factors: DM, Current or recent (<one month) smoker, HTN, HLP, family history of CAD, obesity. Risk Scores: Score 0 - 3: 2.5% MACE over next 6 weeks - Discharge Home Score 4 - 6: 20.3% MACE over next 6 weeks - Admit for Clinical Observation Score 7 - 10: 72.7% MACE over next 6 weeks - Early Invasive Strategies Allergies: Allergies: Allergies Coded Allergies Type Severity Reaction Last Updated Verified metoclopramide Allergy Intermediate rash, lockjaw 09/10/20 Yes prochlorperazine Allergy Intermediate rash, lockjaw 09/10/20 Yes morphine Adverse Reaction Intermediate ITCHING 07/11/20 Yes Physical Exam: PE: General: alert, no acute distress. Skin: warm, dry and intact. Head:: Normocephalic, atraumatic. Neck: Trachea midline. Eyes: EOMI, Normal conjunctiva, No drainage CARDIOVASCULAR: Regular rate and rhythm RESPIRATORY: No respiratory distress Back: Full range of motion. MUSCULOSKELETAL: Full range of motion of bilateral upper and lower extremities. GASTROINTESTINAL: Abdomen soft without rebound or guarding. NEUROLOGICAL: Alert and noted to person, place and time. No neurological deficits observed Psychiatric: Cooperative. Normal judgment Current Patient Data: Labs: Laboratory Tests Test 01/13/21 21:44 Urine Collection Type Unknown Urine Color Yellow Urine Clarity Clear Urine pH 6.0 (<5.0-8.0) Urine Specific [place] 1.020 (1.000-1.030) Urine Protein Negative mg/dL (NEG-TRACE) Urine Glucose (UA) Negative mg/dL (NEG) Urine Ketones (Stick) 40 mg/dL (NEG) Urine Blood Large (NEG) Urine Nitrite Negative (NEG) Urine Bilirubin Negative (NEG) Urine Urobilinogen Dipstick 0.2 mg/dL (0.2 mg/dL) Urine Leukocyte Esterase Small (NEG) Urine RBC Tntc /HPF (0-2) Urine WBC 1-4 /HPF (0-4) Urine Squamous Epithelial Cells Many /LPF Urine Bacteria Few /HPF (0-FEW) Urine Mucus Mod /LPF EKG: EKG: [] Radiology/Procedures: Radiology/Procedures: [] Course & Med Decision Making: Course & Med Decision Making Pertinent Labs and Imaging studies reviewed. (See chart for details) [] Treated with Zofran and Rodney. Patient's urine consistent with urinary tract infection discharged home with prescription Zofran and Macrobid and Rodney 10 tabs Dragon Disclaimer: Julisa Disclaimer: This electronic medical record was generated, in whole or in part, using a voice recognition dictation system. Departure Departure Impression: Primary Impression: Flank pain Additional Impressions: Nausea & vomiting UTI (urinary tract infection) UTI (urinary tract infection) during Disposition: 01 DC HOME SELF CARE/HOMELESS Condition: STABLE Referrals: LC ARCE DO (PCP) Patient Instructions: Flank Pain, - Urinary Tract Infection Scripts Hydrocodone/Acetaminophen (Hydrocodone-Acetamin 5-325 mg) 1 Each Tablet 1 EACH PO Q4-6HRS, #10 TAB Prov: AYUSH LIGHT DO 01/13/21 Ondansetron Hcl (ZOFRAN) 4 Mg Tablet 1 TAB PO Q6HRS, #20 TAB Prov: AYUSH LIGHT DO 01/13/21 Nitrofurantoin Monohyd/M-Cryst (MACROBID 100 MG CAPSULE) 100 Mg Capsule 1 CAP PO BID for 5 Days, #10 CAP 0 Refills Prov: AYUSH LIGHT DO 01/13/21 AYUSH LIGHT DO Jan 13, 2021 22:34
== END 2021-01-13 22:49 | disposition home or self-care (01) ==
LOC: ER 21:36
DX: O23.42 Unspecified infection of urinary tract in pregnancy, second trimester (principal); O21.9 Vomiting of pregnancy, unspecified; R10.31 Right lower quadrant pain; Z87.442 Personal history of urinary calculi; Z90.49 Acquired absence of other specified parts of digestive tract; Z90.89 Acquired absence of other organs; Z88.6 Allergy status to analgesic agent; Z88.8 Allergy status to other drugs, medicaments and biological substances; Z3A.19 19 weeks gestation of pregnancy
CPT/HCPCS: 81001; 87086; 99283

== ENCOUNTER → 2021-02-01 | Emergency (ER) | payer SELFPAY ==
[2021-01-13 22:30] VITALS: BP 119/56
[~2021-02-01] MED LIST changes: +HYDR-2759 PO
== END ==
LOC: ER 16:41
DX: R10.9 Unspecified abdominal pain (principal); Z53.21 Procedure and treatment not carried out due to patient leaving prior to being seen by health care provider

== ENCOUNTER 2021-02-03 20:25 | Emergency (ER) | payer SELFPAY ==
[~2021-02-03] VITALS: Ht 175.3 cm; Wt 78.1 kg
[2021-02-03 21:34] LABS: BILIRUBIN,URINE NEGATIVE (NEG); CLARITY,URINE CLEAR; COLOR,URINE YELLOW; NITRITE,URINE POSITIVE (NEG); PROTEIN,URINE NEGATIVE (NEG-TRACE); UROBILINOGEN,URINE 0.2 mg/dL (0.2 mg/dL)
[2021-02-03 21:35] LABS: BASO % 0 % (0-3); EOS # 0.1 x10^3/uL (0.0-0.7); EOS % 1 % (0-3); HEMATOCRIT 31.6 % (36.0-47.0); HEMOGLOBIN 10.6 g/dL (12.0-15.5); LYMPH # 1.6 x10^3/uL (1.0-4.8); LYMPH % 16 % (24-48); MEAN CORPUSCULAR HEMOGLOBIN 29 pg (25-35); MEAN CORPUSCULAR HGB CONC 33 g/dL (31-37); MEAN CORPUSCULAR VOLUME 87 fL (79-100); MONO # 0.6 x10^3/uL (0.0-1.1); MONO % 6 % (0-9); NEUT # 7.4 x10^3/uL (1.8-7.7); NEUT % 77 % (31-73); PLATELET COUNT 215 x10^3/uL (140-400); RED BLOOD COUNT 3.64 x10^6/uL (3.50-5.40); RED CELL DISTRIBUTION WIDTH 15.2 % (11.5-14.5); WHITE BLOOD COUNT 9.7 x10^3/uL (4.0-11.0)
[2021-02-03 21:41] LABS: BACTERIA,URINE MANY /HPF (0-FEW); RBC,URINE TNTC /HPF (0-2)
[2021-02-03 21:57] LABS: CALCIUM 8.5 mg/dL (8.5-10.1); CREATININE 0.6 mg/dL (0.6-1.0); GFR 116.6; POTASSIUM 3.6 mmol/L (3.5-5.1)
[2021-02-03 22:02] LABS: ALBUMIN 2.9 g/dL (3.4-5.0); ALBUMIN/GLOBULIN RATIO 0.8 (1.0-1.7); TOTAL BILIRUBIN 0.1 mg/dL (0.2-1.0); TOTAL PROTEIN 6.4 g/dL (6.4-8.2)
[2021-02-03] MEDS ORDERED: DOXYLAMINE SUCCINATE 25 MG TABLET PO PRN (22:45)
[2021-02-03] MEDS ORDERED: PYRIDOXINE 100 MG/ML VIAL. IV ONE (23:00)
[2021-02-03] MEDS ORDERED: cefTRIAXone IV Push 1 GM VIAL. IVP ONE (23:00)
[2021-02-03] MEDS ORDERED: MORPHINE SULFATE 4 MG/ML VIAL. IV ONE (23:00)
[2021-02-03] MEDS ORDERED: IV NORMAL SALINE 1000ML BAG 1,000 ML IV ONE (23:00)
[2021-02-03 23:28] LABS: BARBITURATES NEG (NEG); BENZODIAZEPINES NEG (NEG); CANNABINOIDS NEG (NEG); COCAINE NEG (NEG); METHADONE NEG (NEG); OPIATES POS (NEG); PHENCYCLIDINE NEG (NEG)
[2021-02-03 23:35] LABS: AMPHETAMINE/METHAMPHETAMINE NEG (NEG)
[2021-02-04] MEDS ORDERED: HYDROmorphone 2 MG/ML VIAL IVP ONE (01:00)
--- NOTE | 2021-02-04 01:20 | RAD ---
Renal ultrasound dated 02/03/2021. No comparison available. CLINICAL INDICATION: Right flank pain. History of stones. . FINDINGS: Right kidney measures 9.9 cm in length. Left kidney measures 12.4 cm in length. There is mild pelvica liectasis on the right. No apparent renal mass or shadowing calculus. Bilateral ureteral jets are see n. Urinary bladder unremarkable. IMPRESSION: 1. Mild right-sided pelvocaliectasis, nonspecific. This could be related to distal compression of the ureter by the fetus. Distal stone or stricture cannot be excluded. 2. Normal sonographic appearance of the left kidney. Electronically signed by: Sam Cee MD (02/04/2021 1:17 AM) DONALD
--- NOTE | 2021-02-04 01:24 | RAD ---
OB ultrasound dated 02/03/2021: No comparison available. Clinical Indication: Pain. Findings: There is a single intrauterine gestation in variable presentation. The placenta is fundal in location without evidence of placental previa. The amount of amniotic fluid appears appropriate. KASIE equals 1 1.4 cm. The cervix there is widening loss and there is funneling that measures up to 1.9 cm. Accurate cervica l length could not be obtained although appears foreshortened. Biometrical data is as follows: BPD = 6.0 cm for 20 weeks 4 days. HC = 21.7 cm for 23 weeks 5 days. AC = 20.2 cmfor 24 weeks 6 days. FL = 4.4 cm for 24 weeks 3 days. Overall, the estimated sonographic gestational age is 24 weeks 3 days for an estimated date of delive ry of 05/23/2021. Estimated weight is 1709 g. heart rate 145 bpm. There is positive movement. A complete survey was not performed . Impression: 1. Single viable intrauterine gestation with estimated sonographic gestational age of 24 weeks 3 days . 2. The cervix appears foreshortened and there is cervical funneling and widening of the internal os, suggesting cervical incompetence. Electronically signed by: Sam Cee MD (02/04/2021 1:21 AM) DONALD
--- NOTE | 2021-02-04 02:52 | PHYS DOC ---
Past Medical History Past Medical History: Kidney Stone, Other Additional Past Medical Histor: CROHNS Past Surgical History: Appendectomy, Cholecystectomy Smoking Status: Never Smoker Alcohol Use: None General Adult EDM: Chief Complaint: FLANK PAIN HPI: HPI: 31-year-old F at 24 wks based on OB ultrasound, presents to the ed with c/o right flank pain with associated nausea and one episode of nonbloody nonbilious vomiting, stating she's been struggling with "kidney stones" throughout her entire , worst this past 3 weeks, requesting pain medication and nausea medicine but has multiple allergies. States she can receive Dilaudid and Phenergan despite her recorded allergies in the EMR. Reports she has hives when receiving IV Zofran and is requesting IV Benadryl. No relief with Tylenol [id number]. Denies any vaginal bleeding, dysuria, hematuria, suprapubic pain, flulike symptoms, nausea, vomiting, lower abdominal or pelvic pain. Reports past medical history of Crohn's and used to be on Imuran, is not on anything now due to her current . Also reports his tory of a spontaneous miscarriage in her second trimester approximately at 19 or 20 weeks, required no medications or surgery, passed fetus at the hospital and was told "lungs were too small." Follows w/Dr. Diehl ([facility]), TEST DIRECTOR and has an OB appointment with ultrasound on . Past surgical history of cholecystectomy and appendectomy. Primary care physician is Dr. Lc Arce. Has urology appointment in 2 weeks set up by her pcp. Review of Systems: Review of Systems: Constitutional: Denies fever or chills. [] Eyes: Denies change in visual acuity. [] HENT: Denies nasal congestion or sore throat. [] Respiratory: Denies cough or shortness of breath. [] Cardiovascular: Denies chest pain or edema. [] GI: Denies bloody stools or diarrhea. [] : Denies dysuria or vaginal bleeding Musculoskeletal: Denies joint pain or deformity or lower extremity swelling Integument: Denies rash or blisters Neurologic: Denies headache, focal weakness or sensory changes. [] Endocrine: Denies polyuria or polydipsia. [] Lymphatic: Denies swollen glands. [] Psychiatric: Denies depression or anxiety. [] Heart Score: C/O Chest Pain: No Risk Factors: Risk Factors: DM, Current or recent (<one month) smoker, HTN, HLP, family history of CAD, obesity. Risk Scores: Score 0 - 3: 2.5% MACE over next 6 weeks - Discharge Home Score 4 - 6: 20.3% MACE over next 6 weeks - Admit for Clinical Observation Score 7 - 10: 72.7% MACE over next 6 weeks - Early Invasive Strategies Current Medications: Current Medications Medications (Trade) Dose Ordered Sig/Lynda Start Time Stop Time Status Last Admin Dose Admin Ceftriaxone Sodium (Rocephin) 1 gm 1X ONCE 02/03/21 23:00 02/03/21 23:01 DC 02/03/21 22:52 1 GM Doxylamine Succinate (Unisom) 25 mg PRN QHS PRN 02/03/21 22:45 02/03/21 22:51 25 MG Hydromorphone HCl (Dilaudid) 1 mg 1X ONCE 02/04/21 01:00 02/04/21 01:01 DC 02/04/21 00:54 1 MG Morphine Sulfate (Morphine Sulfate) 4 mg 1X ONCE 02/03/21 23:00 02/03/21 23:01 DC 02/03/21 22:51 4 MG Pyridoxine HCl (Vitamin B6) 100 mg 1X ONCE 02/03/21 23:00 02/03/21 23:01 DC 02/03/21 22:51 100 MG Sodium Chloride 1,000 ml @ 1,000 mls/hr 1X ONCE 02/03/21 23:00 02/03/21 23:59 DC 02/03/21 22:50 1,000 MLS/HR Allergies: Allergies: Allergies Coded Allergies Type Severity Reaction Last Updated Verified metoclopramide Allergy Intermediate rash, lockjaw 09/10/20 Yes prochlorperazine Allergy Intermediate rash, lockjaw 09/10/20 Yes morphine Adverse Reaction Intermediate ITCHING 07/11/20 Yes Physical Exam: PE: Constitutional: Well developed, well nourished, no acute distress-no pain out of proportion, no writhing, sitting comfortably, non-toxic appearance. HENT: Normocephalic, atraumatic, Eyes: EOMI, conjunctiva normal, no discharge. Neck: Normal range of motion, supple, Cardiovascular: S1/2 present, regular rhythm Lungs & Thorax: Speaking in full sentences, bilateral equal chest rise, no tachypnea or increased work of breathing Abdomen: soft, no tenderness, no rigidity/guarding, fundal dane 1/2 cm below umbilicus, gravid Skin: Warm, dry, no erythema, no rash. [] Back: No midline tenderness, +right CVA tenderness. [] Extremities: No tenderness, no cyanosis, no lower extremity edema Neurologic: Alert and oriented X 3, normal motor function, normal sensory function, no focal deficits noted. [] Psychologic: Affect normal, judgement normal, mood normal- more anxious and worried than in any distress Pelvic: Chaperoned by RN, external genitalia normal, no vaginal bleeding, normal nonmalodorous quite discharge, cervical os closed, no cervical erythema, tolerated exam well Current Patient Data: Labs: Laboratory Tests Test 02/03/21 20:38 02/03/21 21:06 02/03/21 21:30 02/03/21 23:15 Urine Collection Type Unknown Urine Color Yellow Urine Clarity Clear Urine pH 6.0 (<5.0-8.0) Urine Specific Thebes >=1.030 (1.000-1.030) Urine Protein Negative mg/dL (NEG-TRACE) Urine Glucose (UA) Negative mg/dL (NEG) Urine Ketones (Stick) Trace mg/dL (NEG) Urine Blood Large (NEG) Urine Nitrite Positive (NEG) Urine Bilirubin Negative (NEG) Urine Urobilinogen Dipstick 0.2 mg/dL (0.2 mg/dL) Urine Leukocyte Esterase Trace (NEG) Urine RBC Tntc /HPF (0-2) Urine WBC 1-4 /HPF (0-4) Urine Squamous Epithelial Cells Mod /LPF Urine Bacteria Many /HPF (0-FEW) Urine Mucus Mod /LPF Urine Opiates Screen Pos (NEG) Urine Methadone Screen Neg (NEG) Urine Barbiturates Neg (NEG) Urine Phencyclidine Screen Neg (NEG) Urine Amphetamine/Methamphetamine Neg (NEG) Urine Benzodiazepines Screen Neg (NEG) Urine Cocaine Screen Neg (NEG) Urine Cannabinoids Screen Neg (NEG) Urine Ethyl Alcohol Neg (NEG) POC Urine HCG, Qualitative Hcg positive (Negative) White Blood Count 9.7 x10^3/uL (4.0-11.0) Red Blood Count 3.64 x10^6/uL (3.50-5.40) Hemoglobin 10.6 g/dL (12.0-15.5) L Hematocrit 31.6 % (36.0-47.0) L Mean Corpuscular Volume 87 fL (79-100) Mean Corpuscular Hemoglobin 29 pg (25-35) Mean Corpuscular Hemoglobin Concent 33 g/dL (31-37) Red Cell Distribution Width 15.2 % (11.5-14.5) H Platelet Count 215 x10^3/uL (140-400) Neutrophils (%) (Auto) 77 % (31-73) H Lymphocytes (%) (Auto) 16 % (24-48) L Monocytes (%) (Auto) 6 % (0-9) Eosinophils (%) (Auto) 1 % (0-3) Basophils (%) (Auto) 0 % (0-3) Neutrophils # (Auto) 7.4 x10^3/uL (1.8-7.7) Lymphocytes # (Auto) 1.6 x10^3/uL (1.0-4.8) Monocytes # (Auto) 0.6 x10^3/uL (0.0-1.1) Eosinophils # (Auto) 0.1 x10^3/uL (0.0-0.7) Basophils # (Auto) 0.0 x10^3/uL (0.0-0.2) Maternal Serum HCG Beta Subunit 10757 mIU/mL (0-5) H Sodium Level 137 mmol/L (136-145) Potassium Level 3.6 mmol/L (3.5-5.1) Chloride Level 104 mmol/L (98-107) Carbon Dioxide Level 21 mmol/L (21-32) Anion Gap 12 (6-14) Blood Urea Nitrogen 12 mg/dL (7-20) Creatinine 0.6 mg/dL (0.6-1.0) Estimated GFR (Cockcroft-Gault) 116.6 BUN/Creatinine Ratio 20 (6-20) Glucose Level 86 mg/dL (70-99) Calcium Level 8.5 mg/dL (8.5-10.1) Total Bilirubin 0.1 mg/dL (0.2-1.0) L Aspartate Amino Transferase (AST) 15 U/L (15-37) Alanine Aminotransferase (ALT) 20 U/L (14-59) Alkaline Phosphatase 69 U/L (46-116) Total Protein 6.4 g/dL (6.4-8.2) Albumin 2.9 g/dL (3.4-5.0) L Albumin/Globulin Ratio 0.8 (1.0-1.7) L Lactic Acid Level 0.8 mmol/L (0.4-2.0) Laboratory Tests 02/03/21 21:30 Laboratory Tests 02/03/21 21:30 Vital Signs: Vital Signs Date Time Temp Pulse Resp B/P (MAP) Pulse Ox O2 Delivery O2 Flow Rate FiO2 02/04/21 00:54 100 Room Air 02/03/21 23:20 92 16 112/62 (79) EKG: EKG: [] Radiology/Procedures: Radiology/Procedures: IMAGING REPORT Signed PATIENT: TANK TOMAS ACCOUNT: [id number] : 1990 LOCATION: ER AGE: 31 SEX: F EXAM STATUS: REG ER ORD. PHYSICIAN: MAIRA WEINSTEIN DO REASON: bl flank pain, right worse than left, h/o kidney stones PROCEDURE: RENAL COMPLETE BILATERAL Renal ultrasound dated 02/03/2021. No comparison available. CLINICAL INDICATION: Right flank pain. History of stones. . FINDINGS: Right kidney measures 9.9 cm in length. Left kidney measures 12.4 cm in length. There is mild pelvicaliectasis on the right. No apparent renal mass or shadowing calculus. Bilateral ureteral jets are seen. Urinary bladder unremarkable. IMPRESSION: 1. Mild right-sided pelvocaliectasis, nonspecific. This could be related to distal compression of the ureter by the fetus. Distal stone or stricture cannot be excluded. 2. Normal sonographic appearance of the left kidney. Electronically signed by: Sam Cee MD (02/04/2021 1:17 AM) [facility] [place] DICTATED and SIGNED BY: SAM CEE MD DATE: 02/04/21 [id number] IMAGING REPORT Signed PATIENT: TANK TOMAS ACCOUNT: [id number] : 1990 LOCATION: ER AGE: 31 SEX: F EXAM STATUS: REG ER ORD. PHYSICIAN: MAIRA WEINSTEIN DO REASON: bl flank pain, right worse than left, h/o kidney stones PROCEDURE: OB LIMITED OB ultrasound dated 02/03/2021: No comparison available. Clinical Indication: Pain. Findings: There is a single intrauterine gestation in variable presentation. The placenta is fundal in location without evidence of placental previa. The amount of amniotic fluid appears appropriate. KASIE equals 11.4 cm. The cervix there is widening loss and there is funneling that measures up to 1.9 cm. Accurate cervical length could not be obtained although appears foreshortened. Biometrical data is as follows: BPD = 6.0 cm for 20 weeks 4 days. HC = 21.7 cm for 23 weeks 5 days. AC = 20.2 cmfor 24 weeks 6 days. FL = 4.4 cm for 24 weeks 3 days. Overall, the estimated sonographic gestational age is 24 weeks 3 days for an estimated date of delivery of 05/23/2021. Estimated weight is 1709 g. heart rate 145 bpm. There is positive movement. A complete willis rvey was not performed. Impression: 1. Single viable intrauterine gestation with estimated sonographic gestational age of 24 weeks 3 days. 2. The cervix appears foreshortened and there is cervical funneling and widening of the internal os, suggesting cervical incompetence. Electronically signed by: Sam Cee MD (02/04/2021 1:21 AM) [facility] [place] DICTATED and SIGNED BY: SAM CEE MD DATE: 02/04/21 [id number] Course & Med Decision Making: Course & Med Decision Making Pertinent Labs and Imaging studies reviewed. (See chart for details) *Lengthy ED stay due to high volume in ED, acuity of critical pts and ED staffing.* Concern for nitrate positive UTI and hematuria which could be from cystitis/pyelonephritis versus US w/mild right pelvocaliectasis, no hydronephrosis (no obvious obstructive etiology) -because of this I recommended that patient be transferred to hospital with urology services for IV antibiotics and further monitoring given high risk of demise with cervical insufficiency and pyelonephritis. Patient is calm on physical exam, afebrile, in no distress and tachycardia resolved with IV fluids. LA wnl. UA with trace ketones, no proteinuria. Blood pressure within normal range. Patient with no upper or lower abdominal pain, confusion or blurred vision. Patient understands this and has medical making capacity. Patient prefers to follow-up with her TEST DIRECTOR today, stating her flank pain and nausea is well controlled and she already has urology outpatient evaluation established. Patient slightly tearful and worried but was thoroughly educated on ultrasound suggestive of cervical insufficiency-this may have been the cause for her miscarriage 5 years ago and understands strict ED return precautions regarding this. Ultrasound report given to patient to take to her TEST DIRECTOR. Will discharge home with strict ED return precautions were given for abdominal or pelvic pain, low back pain, vaginal bleeding, fever, flulike symptoms or intractable nausea or vomiting (sepsis, pyelonephritis, vaginal bleeding/lower abd/back pain for demise). Encouraged urgent outpatient follow-up with PMD, TEST DIRECTOR and urology. Life- threatening processes were considered but are low suspicion at this time, given history, physical exam and ED workup-at time of discharge patient was very well- appearing but was educated her exam could change. Pt was educated on all prescription medications and adverse effects. All patient's questions were answered and pt was stable at time of discharge. Life/limb-threatening differential includes but is not limited to, aortic dissection/aneurysm, cauda equina syndrome, transverse myelitis, spinal cord/epidural compression syndromes, discitis, spinal stenosis, epidural abscess or hematoma, osteomyelitis, disc herniation, surgical abdomen, stable or unstable fracture, renal/ureteral colic, sepsis, meningitis, musculoskeletal injury, traumatic injury, intraabdominal/retroperitoneal or pelvic bleeding. I spoken with the patient and her caregivers. I explained the patient's condition, diagnoses and treatment plan based on the information available to me at this time. I have answered the patient and her caregiver's questions and addressed any concerns. The patient and her caregivers have a good understanding of patient's diagnosis, condition and treatment plan as can be expected at this point. Vital signs have been stable. Patient's condition is stable and appropriate for discharge from the emergency department. Patient will pursue further outpatient evaluation with primary care physician or other designated or consulting physician as outlined in the discharge instructions. The patient and/or caregivers are agreeable to this plan of care and follow-up instructions have been explained in detail. The patient and/or caregivers have received these instructions in written form and have expressed an understanding of the discharge instructions. The patient and/or caregivers are aware that any significant change of condition or worsening of symptoms should prompt immediate return to this or the closest emergency department or call to 911Laura Egan Disclaimer: Julisa Disclaimer: This electronic medical record was generated, in whole or in part, using a voice recognition dictation system. Departure Departure Impression: Primary Impression: UTI (urinary tract infection) in in second trimester Additional Impressions: Flank pain in patient Cervical incompetence during in second trimester Disposition: HOME / SELF CARE / HOMELESS Condition: STABLE Referrals: LC ARCE DO (PCP) Patient Instructions: Cervical Insufficiency, Flank Pain, - Urinary Tract Infection Additional Instructions: FOLLOW UP WITH TEST DIRECTOR: -Or your TEST DIRECTOR for concern for [facility] Address: [address] [place] [address], [facility] [address] [place] [address] FOLLOW UP WITH UROLOGY: For definitive management of kidney stones [facility] [address] [place] [address] [place] [address] [address] [facility] [address] [place] [address] [place] [address] [place] [address] EMERGENCY DEPARTMENT GENERAL DISCHARGE INSTRUCTIONS Thank you for coming to [facility] Emergency Department (ED) today and trusting us with you care. We trust that you had a positive experience in our Emergency Department. If you wish to speak to the department management, you may call the Director at [phone]. YOUR FOLLOW UP INSTRUCTIONS ARE FOLLOWS: 1. Do you have a private Doctor? If you do not have a private doctor, please ask for a resource list of physicians or clinics that may be able to assist you with follow up care. 2. The Emergency Physicain has interpreted your x-rays. The X-Ray specialist will also review them. If there is a change in the findings, you will be notified in 48 hours when at all possible. 3. A lab test or culture has been done, your results will be reviewed and you will be notified if you need a change in treatment. ADDITIONAL INSTRUCTIONS AND INFORMATION: 1. Your care today has been supervised by a physician who is specially trained in emergency care. Many problems require more than one evaluation for a complete diagnosis and treatment. We recommend that you schedule your follow up appointment as recommended to ensure complete treatment of you illness or injury. If you are unable to obtain follow up care and continue to have a problem, or if your condition worsens, we recommend that you return to the ED. 2. We are not able to safely determine your condition over the phone nor are we able to give sound medical advice over the phone. For these safety reasons, if you call for medical advice we will ask you to come to the ED for further evaluation. 3. If you have any questions regarding these discharge instructions please call the ED at [phone]. SAFETY INFORMATION: In the interest of safety, wellness, and injury prevention; we encourage you to wear your sealbelt, if you smoke; quite smoking, and we encourage family to use a protective helmet for bicycling and other sporting events that present an increased risk for head injury. IF YOUR SYMPTOMS WORSEN OR NEW SYMPTOMS DEVELOP, OR YOU HAVE CONCERNS ABOUT YOUR CONDITION; OR IF YOUR CONDITION WORSENS WHILE YOU ARE WAITING FOR YOUR FOLLOW UP APPO INTMENT; EITHER CONTACT YOUR PRIMARY CARE DOCTOR, THE PHYSICIAN WHOSE NAME AND NUMBER YOU WERE GIVEN, OR RETURN TO THE ED IMMEDIATELY. Scripts Cefpodoxime Proxetil (CEFPODOXIME PROXETIL) 200 Mg Tablet 1 TAB PO BID for 10 Days, #20 TAB Prov: MAIRA WEINSTEIN DO 02/04/21 Doxylamine/Pyridoxine Hcl (DICLEGIS DR 10-10 MG TABLET) 1 Each Tablet. 1 EACH PO Q6-8HRS PRN for NAUSEA, #20 TAB.SR Prov: MAIRA WEINSTEIN DO 02/04/21 MAIRA WEINSTEIN DO Feb 04, 2021 02:51
[2021-02-04 03:03] VITALS: BP 93/58
[2021-02-04] MEDS: ONDANSETRON PF 4 MG/2 ML VIAL. IVP ONE ×2 (03:12→03:15)
[2021-02-04] MEDS ORDERED: ONDANSETRON ODT 4 MG TAB.RAPDIS. PO ONE (03:30)
[2021-02-04] MEDS ORDERED: DOXY1TAB3 PO (04:15)
[2021-02-04] MEDS ORDERED: CEFP200T PO (04:17)
== END 2021-02-04 04:30 | disposition home or self-care (01) ==
LOC: ER 20:25
DX: O23.42 Unspecified infection of urinary tract in pregnancy, second trimester (principal); O34.32 Maternal care for cervical incompetence, second trimester; Z3A.24 24 weeks gestation of pregnancy; Z90.89 Acquired absence of other organs; Z90.49 Acquired absence of other specified parts of digestive tract; Z87.442 Personal history of urinary calculi; Z88.5 Allergy status to narcotic agent; Z88.8 Allergy status to other drugs, medicaments and biological substances
CPT/HCPCS: 36415; 76770; 76815; 80053; 80307; 81001; 81025; 83605; 84702; 85025; 87040; 87086; 96361; 96374; 96375; 99285; J0696; J1170; J2270; J3415; J7030; J2405

== ENCOUNTER 2021-02-13 21:42 | Emergency (ER) | payer SELFPAY ==
[~2021-02-13] VITALS: Ht 175.3 cm; Wt 77.0 kg
[~2021-02-13 21:42] MED LIST changes: +CEFP200T PO; +DOXY1TAB3 PO
--- NOTE | 2021-02-13 21:51 | PHYS DOC ---
Past Medical History Past Medical History: Kidney Stone, Other Additional Past Medical Histor: CROHNS Past Surgical History: Appendectomy, Cholecystectomy Smoking Status: Never Smoker Alcohol Use: None General Adult EDM: Chief Complaint: ABDOMINAL PAIN HPI: HPI: Patient is a 31-year-old female presenting for suspected Crohn's flare. This is an acute on chronic problem for patient, she was diagnosed with this approximately 2.5 years ago and has been on a biologic agent ever since. Reports recently finding out she was August 2020 and had since disco ntinued biologic agent. Recently delivered her child via spontaneous vaginal delivery 8 days ago at 24 weeks with suspected cause being due to patient having in incompetent cervix. Patient reports current flare of left lower quadrant abdominal pain, nausea and looser stools than usual started about 2 weeks ago and has been present ever since. Reports acute worsening in last 48 hours. States she has been seen in emergency rooms in the past for similar flares, responds to Phenergan and steroid use in addition to IV pain medication. Reports p.o. intake has been limited due to ongoing nausea, has been able to tolerate p.o. fluid intake only. No fever, sick contact, recent travel, chest pain, shortness of breath, UTI-like symptoms, changes in motor or sensory function. She has received x2 [place] vaccines, has been passing gas without difficulties Review of Systems: Review of Systems: Fourteen body systems of review of systems have been reviewed. See HPI for pertinent positives and negative responses, other fall all other systems are negative, non-pertinent or non-contributory Heart Score: C/O Chest Pain: No HEART Score for Chest Pain: HEART Score for Chest Pain Response (Comments) Value History Slighlty/Non-Suspicious 0 Age < 45 0 Risk Factors No Risk Factors 0 Total 0 Risk Factors: Risk Factors: DM, Current or recent (<one month) smoker, HTN, HLP, family history of CAD, obesity. Risk Scores: Score 0 - 3: 2.5% MACE over next 6 weeks - Discharge Home Score 4 - 6: 20.3% MACE over next 6 weeks - Admit for Clinical Observation Score 7 - 10: 72.7% MACE over next 6 weeks - Early Invasive Strategies Allergies: Allergies: Allergies Coded Allergies Type Severity Reaction Last Updated Verified metoclopramide Allergy Intermediate rash, lockjaw 09/10/20 Yes prochlorperazine Allergy Intermediate rash, lockjaw 09/10/20 Yes morphine Adverse Reaction Intermediate ITCHING 07/11/20 Yes Physical Exam: PE: Constitutional: Well developed, well nourished, no acute distress, non-toxic appearance. HENT: Normocephalic, atraumatic, bilateral external ears normal, oropharynx moist, no oral exudates, nose normal. Eyes: PERRLA, EOMI, conjunctiva normal, no discharge. Neck: Normal range of motion, no tenderness, supple, no stridor. Cardiovascular: Heart rate regular, sinus rhythm, no murmurs rubs or gallops Lungs & Thorax: Bilateral breath sounds clear to auscultation Abdomen: Bowel sounds normal, soft, no tenderness, no masses, no pulsatile masses. Nonsurgical abdomen, no peritoneal signs Skin: Warm, dry, no erythema, no rash. Back: No tenderness, no CVA tenderness. Extremities: No tenderness, no cyanosis, no clubbing, ROM intact, no edema. Neurologic: Alert and oriented X 3, grossly normal motor & sensory function, no focal deficits noted. Psychologic: Affect normal, judgement normal, mood normal. Current Patient Data: Labs: Laboratory Tests Test 02/13/21 21:53 02/13/21 21:55 02/13/21 22:25 Urine Collection Type Unknown Urine Color Yellow Urine Clarity Clear Urine pH 6.5 Urine Specific [place] 1.010 Urine Protein Negative mg/dL Urine Glucose (UA) Negative mg/dL Urine Ketones (Stick) Negative mg/dL Urine Blood Large Urine Nitrite Negative Urine Bilirubin Negative Urine Urobilinogen Dipstick 0.2 mg/dL Urine Leukocyte Esterase Trace Urine RBC >40 /HPF Urine WBC Occ /HPF Urine Squamous Epithelial Cells Few /LPF Urine Bacteria Few /HPF Bedside Urine HCG, Qualitative Hcg positive White Blood Count 9.6 x10^3/uL Red Blood Count 3.52 x10^6/uL Hemoglobin 10.1 g/dL Hematocrit 30.3 % Mean Corpuscular Volume 86 fL Mean Corpuscular Hemoglobin 29 pg Mean Corpuscular Hemoglobin Concent 33 g/dL Red Cell Distribution Width 15.1 % Platelet Count 217 x10^3/uL Neutrophils (%) (Auto) 74 % Lymphocytes (%) (Auto) 18 % Monocytes (%) (Auto) 6 % Eosinophils (%) (Auto) 2 % Basophils (%) (Auto) 0 % Neutrophils # (Auto) 7.1 x10^3/uL Lymphocytes # (Auto) 1.7 x10^3/uL Monocytes # (Auto) 0.6 x10^3/uL Eosinophils # (Auto) 0.2 x10^3/uL Basophils # (Auto) 0.0 x10^3/uL Sodium Level 142 mmol/L Potassium Level 3.7 mmol/L Chloride Level 106 mmol/L Carbon Dioxide Level 25 mmol/L Anion Gap 11 Blood Urea Nitrogen 14 mg/dL Creatinine 0.7 mg/dL Estimated GFR (Cockcroft-Gault) 97.6 BUN/Creatinine Ratio 20 Glucose Level 102 mg/dL Lactic Acid Level 1.4 mmol/L Calcium Level 8.3 mg/dL Total Bilirubin 0.1 mg/dL Aspartate Amino Transf (AST/SGOT) 15 U/L Alanine Aminotransferase (ALT/SGPT) 48 U/L Alkaline Phosphatase 71 U/L C-Reactive Protein, Quantitative < 0.5 mg/L Total Protein 6.0 g/dL Albumin 2.8 g/dL Albumin/Globulin Ratio 0.9 Current Medications Medications (Trade) Dose Ordered Sig/Lynda Route PRN Reason Start Time Stop Time Status Last Admin Dose Admin Sodium Chloride 1,000 ml @ 30 mls/hr 1X ONCE IV 02/13/21 22:30 02/15/21 07:49 02/13/21 22:39 Promethazine HCl (Phenergan) 12.5 mg 1X ONCE PO 02/13/21 22:30 02/13/21 22:31 DC 02/13/21 22:36 Prednisone (Prednisone) 60 mg 1X ONCE PO 02/13/21 22:30 02/13/21 22:31 DC 02/13/21 22:36 Fentanyl Citrate (Fentanyl 2ml Vial) 50 mcg 1X ONCE IVP 02/13/21 22:30 02/13/21 22:31 DC 02/13/21 22:37 Fentanyl Citrate (Fentanyl 2ml Vial) 50 mcg 1X ONCE IVP 02/13/21 23:30 02/13/21 23:31 Vital Signs: Vital Signs Date Time Temp Pulse Resp B/P (MAP) Pulse Ox O2 Delivery O2 Flow Rate FiO2 02/13/21 22:00 98.3 120 20 110/67 (81) 98 Room Air 98.3 Vital Signs Date Time Temp Pulse Resp B/P (MAP) Pulse Ox O2 Delivery O2 Flow Rate FiO2 02/13/21 22:37 16 97 Room Air 02/13/21 22:00 98.3 120 110/67 (81) 98.3 EKG: EKG: [] Radiology/Procedures: Radiology/Procedures: [] Course & Med Decision Making: Course & Med Decision Making Patient tachycardic otherwise hemodynamically stable, HPI concerning for Crohn's flare, PE nonconcerning for emergent or surgical issues ER work-up obtained and grossly nonconcerning for any emergent or surgical pathology. IV access obtained, patient administered Phenergan, IV fluid rehydration with 1 L normal saline, p.o. steroids, and IV pain medications administered with vast improvement in symptoms Patient reassessed numerous times by various healthcare professionals with ongoing improvement in symptoms. I evaluated patient, discussed potential need for further diagnostic work-up such as radiographs versus CT imaging but given classic symptoms of prior Crohn's flares and improvement in overall presenting symptoms, joint decision to defer Patient reports having good access to primary care physician and GI specialist in outpatient setting, states she can be seen within upcoming 5 days for repeat evaluation. Ktr[place] reviewed, patient has had numerous opioids prescribed in recent history but no active prescriptions, these were all related to her recent and history of Crohn's. Joint decision to discharge with steroid burst, nausea medication and pain medication Strict return precautions were discussed with good understanding by patient, all questions and concerns addressed prior to ER departure in improved condition Critical Care Time This patient required critical care. Due to the fact that the patient required a significant amount of one on one physician - patient contact time, ordering and review of studies, arranging urgent treatment with development of a management plan, evaluation of patients response to treatment with frequent reassessments, and discussions with other providers this patient required 40 minutes of critical care time. Critical care time was indicated due to the inherent instability and/or potential for instability in this patient. The critical care time that is allocated to this patient is above and beyond any time spent on any other billable procedures performed on this patient. [place] Disclaimer: Julisa Disclaimer: This electronic medical record was generated, in whole or in part, using a voice recognition dictation system. Departure Departure Impression: Primary Impression: Crohn disease Additional Impression: Nausea, vomiting, and diarrhea Disposition: HOME / SELF CARE / HOMELESS Condition: IMPROVED Referrals: LC ARCE DO (PCP) Patient Instructions: Crohn's Disease, Nausea and Vomiting Additional Instructions: You have been evaluated in the Emergency Department today for abdominal pain. Your evaluation was not suggestive of any emergent condition requiring medical intervention at this time. However, some abdominal problems make take more time to appear. Therefore, it is important for you to watch for any new symptoms or worsening of your current condition. As disclosed, this is likely a flare of your chronic Crohn's disease. It was treated as such with Phenergan, pain medication and steroids. Your symptoms improved. We discussed utility of further diagnostic work-up in ER such as radiograph and/or CT imaging but joint decision to defer You have good access to care with primary care physician and fire officer, I advise you contact them first thing tomorrow morning to review your ER visit today. If any concerning signs or symptoms present prior to outpatient follow- up please do not hesitate to come back for repeat evaluation Return to the Emergency Department if you experience worsening pain, persistent fevers greater than 100.4, recurrent vomiting, blood in vomit, blood in stool, dark tarry stool, chest pain, difficulty breathing, or any other concerning symptoms. Scripts Prednisone (PREDNISONE) 50 Mg Tablet 1 TAB PO DAILY, #5 TAB Prov: BENTLEY JOHNSON DO 02/13/21 Hydrocodone Bit/Acetaminophen (HYDROCODONE-APAP 5-325 ) 1 Tab Tablet 1 TAB PO PRN Q6HRS PRN for PAIN, #12 TAB 0 Refills Prov: BENTLEY JOHNSON DO 02/13/21 Promethazine Hcl (PROMETHAZINE HCL) 12.5 Mg Tablet 1 TAB PO Q6-8HRS for nausea for 5 Days, #20 TAB 0 Refills Prov: BENTLEY JOHNSON DO 02/13/21 BENTLEY JOHNSON DO February 13, 2021 21:51
[2021-02-13 22:01] LABS: BILIRUBIN,URINE NEGATIVE (NEG); CLARITY,URINE CLEAR; COLOR,URINE YELLOW; NITRITE,URINE NEGATIVE (NEG); PH,URINE 6.5 (<5.0-8.0); PROTEIN,URINE NEGATIVE (NEG-TRACE); UROBILINOGEN,URINE 0.2 mg/dL (0.2 mg/dL)
[2021-02-13 22:07] LABS: RBC,URINE >40 /HPF (0-2)
[2021-02-13 22:08] LABS: BACTERIA,URINE FEW /HPF (0-FEW); WBC,URINE OCC /HPF (0-4)
[2021-02-13] MEDS ORDERED: IV NORMAL SALINE 1000ML BAG 1,000 ML IV ONE (22:30)
[2021-02-13] MEDS ORDERED: predniSONE 20 MG TABLET PO ONE (22:30)
[2021-02-13] MEDS ORDERED: fentaNYL PF VIAL 100 MCG/2 ML VIAL IVP ONE ×2 (22:30→23:30)
[2021-02-13] MEDS ORDERED: PROMETHAZINE 12.5 MG TABLET. PO ONE (22:30)
[2021-02-13 22:36] LABS: BASO % 0 % (0-3); EOS # 0.2 x10^3/uL (0.0-0.7); EOS % 2 % (0-3); HEMATOCRIT 30.3 % (36.0-47.0); HEMOGLOBIN 10.1 g/dL (12.0-15.5); LYMPH # 1.7 x10^3/uL (1.0-4.8); LYMPH % 18 % (24-48); MEAN CORPUSCULAR HEMOGLOBIN 29 pg (25-35); MEAN CORPUSCULAR HGB CONC 33 g/dL (31-37); MEAN CORPUSCULAR VOLUME 86 fL (79-100); MONO # 0.6 x10^3/uL (0.0-1.1); MONO % 6 % (0-9); NEUT # 7.1 x10^3/uL (1.8-7.7); NEUT % 74 % (31-73); PLATELET COUNT 217 x10^3/uL (140-400); RED BLOOD COUNT 3.52 x10^6/uL (3.50-5.40); RED CELL DISTRIBUTION WIDTH 15.1 % (11.5-14.5); WHITE BLOOD COUNT 9.6 x10^3/uL (4.0-11.0)
[2021-02-13 22:45] LABS: ANION GAP 11 (6-14); BLOOD UREA NITROGEN 14 mg/dL (7-20); BUN/CREATININE RATIO 20 (6-20); CALCIUM 8.3 mg/dL (8.5-10.1); CARBON DIOXIDE 25 mmol/L (21-32); CHLORIDE 106 mmol/L (98-107); CREATININE 0.7 mg/dL (0.6-1.0); GFR 97.6; GLUCOSE 102 mg/dL (70-99); POTASSIUM 3.7 mmol/L (3.5-5.1); SODIUM 142 mmol/L (136-145)
[2021-02-13 22:51] LABS: ALBUMIN 2.8 g/dL (3.4-5.0); ALBUMIN/GLOBULIN RATIO 0.9 (1.0-1.7); ALK PHOS 71 U/L (46-116); ALT (SGPT) 48 U/L (14-59); AST (SGOT) 15 U/L (15-37); C-REACTIVE PROTEIN < 0.5 mg/L (0-3.3); TOTAL BILIRUBIN 0.1 mg/dL (0.2-1.0)
[2021-02-13 23:06] VITALS: BP 117/70
[2021-02-13] MEDS ORDERED: HYDR-2761 PO (23:49)
[2021-02-13] MEDS ORDERED: PROM12.58 PO (23:49)
[2021-02-13] MEDS ORDERED: PRED50TA PO (23:50)
== END 2021-02-14 00:10 | disposition home or self-care (01) ==
LOC: ER 21:42
DX: O99.612 Diseases of the digestive system complicating pregnancy, second trimester (principal); K50.90 Crohn's disease, unspecified, without complications; Z90.89 Acquired absence of other organs; Z90.49 Acquired absence of other specified parts of digestive tract; Z87.442 Personal history of urinary calculi; Z3A.24 24 weeks gestation of pregnancy; Z88.1 Allergy status to other antibiotic agents; Z88.5 Allergy status to narcotic agent; Z88.8 Allergy status to other drugs, medicaments and biological substances
CPT/HCPCS: 36415; 80053; 81001; 81025; 83605; 85025; 86140; 87086; 96374; 96376; 99284; J3010; J7030; J7512; Q0169

== ENCOUNTER 2021-03-08 19:59 | Emergency (ER) | payer SELFPAY ==
[~2021-03-08] VITALS: Ht 175.3 cm; Wt 76.4 kg
[~2021-03-08 19:59] MED LIST changes: +PRED50TA PO; +PROM12.58 PO
[2021-03-08 20:57] LABS: BILIRUBIN,URINE SMALL (NEG); CLARITY,URINE CLEAR; COLOR,URINE AMBER; NITRITE,URINE NEGATIVE (NEG); PROTEIN,URINE NEGATIVE (NEG-TRACE)
[2021-03-08 21:07] LABS: BASO # 0.1 x10^3/uL (0.0-0.2); BASO % 1 % (0-3); EOS % 1 % (0-3); HEMATOCRIT 34.7 % (36.0-47.0); HEMOGLOBIN 11.6 g/dL (12.0-15.5); LYMPH # 1.5 x10^3/uL (1.0-4.8); LYMPH % 22 % (24-48); MEAN CORPUSCULAR HEMOGLOBIN 29 pg (25-35); MEAN CORPUSCULAR HGB CONC 33 g/dL (31-37); MEAN CORPUSCULAR VOLUME 87 fL (79-100); MONO # 0.4 x10^3/uL (0.0-1.1); MONO % 6 % (0-9); NEUT # 4.7 x10^3/uL (1.8-7.7); NEUT % 70 % (31-73); PLATELET COUNT 252 x10^3/uL (140-400); RED BLOOD COUNT 3.99 x10^6/uL (3.50-5.40); RED CELL DISTRIBUTION WIDTH 16.7 % (11.5-14.5); WHITE BLOOD COUNT 6.7 x10^3/uL (4.0-11.0)
[2021-03-08 21:14] LABS: BACTERIA,URINE FEW /HPF (0-FEW)
[2021-03-08 21:15] LABS: CREATININE 0.8 mg/dL (0.6-1.0); GFR 83.7; POTASSIUM 3.5 mmol/L (3.5-5.1)
[2021-03-08 21:21] LABS: ALBUMIN 4.2 g/dL (3.4-5.0); ALBUMIN/GLOBULIN RATIO 1.4 (1.0-1.7); TOTAL BILIRUBIN 0.4 mg/dL (0.2-1.0); TOTAL PROTEIN 7.2 g/dL (6.4-8.2)
[2021-03-08] MEDS: fentaNYL PF VIAL 100 MCG/2 ML VIAL IV ONE (22:33)
[2021-03-08] MEDS: ONDANSETRON PF 4 MG/2 ML VIAL. IV ONE ×2 (22:35→23:39)
[2021-03-08] MEDS: DEXAMETHASONE SOD PHOS 20 MG/5 ML VIAL. IV ONE (22:37)
[2021-03-08 23:37] VITALS: BP 123/79
[2021-03-08] MEDS: diphenhydrAMINE 50 MG/ML VIAL IVP ONE (23:39)
[2021-03-08] MEDS: HYDROmorphone 2 MG/ML VIAL IVP ONE (23:53)
[2021-03-08] MEDS ORDERED: ONDA4TAB12 PO (23:59)
[2021-03-08] MEDS ORDERED: PRED20TA PO (23:59)
--- NOTE | 2021-03-08 23:59 | ED.ADGEN ---
Past Medical History Past Medical History: Kidney Stone, Other Additional Past Medical Histor: CROHNS Past Surgical History: Appendectomy, Cholecystectomy Smoking Status: Never Smoker Alcohol Use: None General Adult EDM: Chief Complaint: OTHER COMPLAINTS HPI: HPI: Patient is a 31 year old female who presents emergency department with complaints of a Crohn's flare for last 2 weeks. Patient states she has been having nausea, abdominal pain, and bloody diarrhea. She states that she has had 5 episodes of diarrhea today. She reports intermittent cramping pain in her lower left quadrant, she denies any abdominal tenderness she states that the pain is sharp and it comes and goes quickly. Patient denies any vomiting but states that she constantly feels nauseated. Patient reports that she recently delivered a child at 25 weeks gestation due incompetent cervix. She reports that her child [facility] and is doing well. Patient denies any current vaginal bleeding. She denies any fever, cough, shortness of breath, body aches, fatigue, chest pain, palpitations, dysuria, hematuria, or increased urinary frequency. She currently rates her pain an 8 out of 10 on the pain scale, she denies any alleviating factors, the pain is crampy in nature. Review of Systems: Review of Systems: Complete ROS is negative unless otherwise noted in HPI. Current Medications: Current Medications Medications (Trade) Dose Ordered Sig/[facility] Start Time Stop Time Status Last Admin Dose Admin Dexamethasone Sodium Phosphate (Decadron) 10 mg 1X ONCE 03/08/21 22:15 03/08/21 22:16 DC 03/08/21 22:37 10 MG Diphenhydramine HCl (Benadryl) 25 mg 1X ONCE 03/08/21 23:15 03/08/21 23:16 DC 03/08/21 23:39 25 MG Fentanyl Citrate (Fentanyl 2ml Vial) 50 mcg 1X ONCE 03/08/21 22:15 03/08/21 22:16 DC 03/08/21 22:33 50 MCG Hydromorphone HCl (Dilaudid) 1 mg 1X ONCE 03/09/21 00:00 03/09/21 00:01 03/08/21 23:53 1 MG Ondansetron HCl (Zofran) 4 mg 1X ONCE 03/08/21 23:15 03/08/21 23:16 DC 03/08/21 23:39 4 MG Allergies: Allergies: Allergies Coded Allergies Type Severity Reaction Last Updated Verified metoclopramide Allergy Intermediate rash, lockjaw 09/10/20 Yes prochlorperazine Allergy Intermediate rash, lockjaw 09/10/20 Yes morphine Adverse Reaction Intermediate ITCHING 07/11/20 Yes Physical Exam: PE: See Above Constitutional: Well developed, well nourished, no acute distress, non-toxic appearance, appears uncomfortable. [] HENT: Normocephalic, atraumatic, bilateral external ears normal, nose normal. [] Eyes: PERRLA, EOMI, conjunctiva normal, no discharge. [] Neck: Normal range of motion, no stridor. [] Cardiovascular:Heart rate regular rhythm Lungs & Thorax: Respirations even and unlabored, no retractions, no respiratory distress Abdomen: soft, no tenderness, no rebound tenderness, no guarding, no palpable masses Skin: Warm, dry, no erythema, no rash. [] Extremities: No cyanosis, ROM intact, no edema. [] Neurologic: Alert and oriented X 3, normal motor, normal sensory, no focal deficits noted. [] Psychologic: Affect normal, judgement normal, mood normal. [] Current Patient Data: Labs: Laboratory Tests Test 03/08/21 20:18 03/08/21 20:21 03/08/21 20:57 03/08/21 21:00 Urine Collection Type Unknown Urine Color [place] Urine Clarity Clear Urine pH 6.0 (<5.0-8.0) Urine Specific [place] >=1.030 (1.000-1.030) Urine Protein Negative mg/dL (NEG-TRACE) Urine Glucose (UA) Negative mg/dL (NEG) Urine Ketones (Stick) 15 mg/dL (NEG) Urine Blood Negative (NEG) Urine Nitrite Negative (NEG) Urine Bilirubin Small (NEG) Urine Urobilinogen Dipstick 1.0 mg/dL (0.2 mg/dL) Urine Leukocyte Esterase Negative (NEG) Urine RBC 1-2 /HPF (0-2) Urine WBC 5-10 /HPF (0-4) Urine Squamous Epithelial Cells Few /LPF Urine Bacteria Few /HPF (0-FEW) Urine Mucus Mod /LPF POC Urine HCG, Qualitative Hcg negative (Negative) Hcg negative (Negative) White Blood Count 6.7 x10^3/uL (4.0-11.0) Red Blood Count 3.99 x10^6/uL (3.50-5.40) Hemoglobin 11.6 g/dL (12.0-15.5) L Hematocrit 34.7 % (36.0-47.0) L Mean Corpuscular Volume 87 fL (79-100) Mean Corpuscular Hemoglobin 29 pg (25-35) Mean Corpuscular Hemoglobin Concent 33 g/dL (31-37) Red Cell Distribution Width 16.7 % (11.5-14.5) H Platelet Count 252 x10^3/uL (140-400) Neutrophils (%) (Auto) 70 % (31-73) Lymphocytes (%) (Auto) 22 % (24-48) L Monocytes (%) (Auto) 6 % (0-9) Eosinophils (%) (Auto) 1 % (0-3) Basophils (%) (Auto) 1 % (0-3) Neutrophils # (Auto) 4.7 x10^3/uL (1.8-7.7) Lymphocytes # (Auto) 1.5 x10^3/uL (1.0-4.8) Monocytes # (Auto) 0.4 x10^3/uL (0.0-1.1) Eosinophils # (Auto) 0.0 x10^3/uL (0.0-0.7) Basophils # (Auto) 0.1 x10^3/uL (0.0-0.2) Erythrocyte Sedimentation Rate 7 (0-25) Sodium Level 141 mmol/L (136-145) Potassium Level 3.5 mmol/L (3.5-5.1) Chloride Level 104 mmol/L (98-107) Carbon Dioxide Level 24 mmol/L (21-32) Anion Gap 13 (6-14) Blood Urea Nitrogen 10 mg/dL (7-20) Creatinine 0.8 mg/dL (0.6-1.0) Estimated GFR (Cockcroft-Gault) 83.7 BUN/Creatinine Ratio 13 (6-20) Glucose Level 107 mg/dL (70-99) H Calcium Level 9.0 mg/dL (8.5-10.1) Total Bilirubin 0.4 mg/dL (0.2-1.0) Aspartate Amino Transferase (AST) 15 U/L (15-37) Alanine Aminotransferase (ALT) 24 U/L (14-59) Alkaline Phosphatase 84 U/L (46-116) C-Reactive Protein, Quantitative 0.8 mg/L (0-3.3) Total Protein 7.2 g/dL (6.4-8.2) Albumin 4.2 g/dL (3.4-5.0) Albumin/Globulin Ratio 1.4 (1.0-1.7) Laboratory Tests 03/08/21 20:57 Laboratory Tests 03/08/21 20:57 Vital Signs: Vital Signs Date Time Temp Pulse Resp B/P (MAP) Pulse Ox O2 Delivery O2 Flow Rate FiO2 03/08/21 23:53 18 99 Room Air 03/08/21 20:48 98.6 112 121/85 (97) 98.6 EKG: EKG: [] Heart Score: C/O Chest Pain: No Risk Scores: Score 0 - 3: 2.5% MACE over next 6 weeks - Discharge Home Score 4 - 6: 20.3% MACE over next 6 weeks - Admit for Clinical Observation Score 7 - 10: 72.7% MACE over next 6 weeks - Early Invasive Strategies Radiology/Procedures: Radiology/Procedures: [] Course & Med Decision Making: Course & Med Decision Making Pertinent Labs and Imaging studies reviewed. (See chart for details) 31-year-old female presented emergency department with complaints of Crohn's flare for the last 2 weeks. CBC revealed a hemoglobin 11.6, hematocrit of 34.7 otherwise unremarkable; CMP revealed a glucose of 107 otherwise unremarkable, C-reactive protein was 0.8, ESR 7; UA revealed 5-10 white blood cells with few bacteria, few squamous cells, 15 ketones, and no nitrites. Patient's urine is negative. Patient was given 4 mg of Zofran, 10 mg of Decadron, 50 mcg of fentanyl IV, she reported no relief of her symptoms. Patient states she actually vomited shortly after getting the nausea medication. Patient was given 4 mg of Zofran and 25 mg of Benadryl for relief of her nausea. She reported no decrease in her pain so 1 mg of Dilaudid was ordered. [id number]- Pt reports no nausea and decreased pain after medications. She would like to go home. Prescriptions written for a prednisone taper and Zofran. 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 sutherland's information also for possible earlier appointment. [] Julisa Disclaimer: Dragon Disclaimer: This electronic medical record was generated, in whole or in part, using a voice recognition dictation system. Departure Departure Impression: Primary Impression: Crohn disease Disposition: HOME / SELF CARE / HOMELESS Condition: STABLE Referrals: CL ARCE DO (PCP) JL SUTHERLAND MD Patient Instructions: Crohn's Disease Additional Instructions: Fill the prescriptions use them as directed. Follow-up with gastroenterology as planned. Return to the ER if symptoms worsen or fever develops. Scripts Ondansetron (ONDANSETRON ODT) 4 Mg Tab.rapdis 1 TAB PO PRN Q6-8HRS PRN for NAUSEA/VOMITING for 4 Days, #16 TAB 0 Refills Prov: SHAWN STILES [employer]ATING TECHNICIAN 03/08/21 Prednisone (PREDNISONE) 20 Mg Tablet 1 TAB PO UD for 12 Days, #15 TAB 2 tabs by mouth days 1,2,3 then 1.5 tabs by mouth days 4,5,6 then 1 tab by mouth days 7,8,9 then 0.5 tab by mouth day 10,11,12 Prov: SHAWN [employer]ES [employer] COATING TECHNICIAN 03/08/21 Problem Qualifiers Primary Impression: Crohn disease Gastrointestinal tract location: unspecified location Digestive disease complication type: with rectal bleeding Qualified Codes: K50.911 - Crohn's disease, unspecified, with rectal bleeding SHAWN STILES [employer]ICAL COATING TECHNICIAN March 08, 2021 23:59
== END 2021-03-09 00:18 | disposition home or self-care (01) ==
LOC: ER 19:59
DX: K50.911 Crohn's disease, unspecified, with rectal bleeding (principal); Z87.442 Personal history of urinary calculi; Z90.89 Acquired absence of other organs; Z90.49 Acquired absence of other specified parts of digestive tract; Z88.5 Allergy status to narcotic agent; Z88.8 Allergy status to other drugs, medicaments and biological substances
CPT/HCPCS: 36415; 80053; 81001; 81025; 85025; 85651; 86140; 87086; 96374; 96375; 96376; 99285; J1100; J1170; J1200; J2405; J3010

== ENCOUNTER 2021-04-08 10:58 | Emergency (ER) | payer SELFPAY ==
[~2021-04-08] VITALS: Ht 175.3 cm; Wt 76.0 kg
[~2021-04-08 10:58] MED LIST changes: +PRED20TA PO
[2021-04-08] MEDS ORDERED: IV NORMAL SALINE 1000ML BAG 1,000 ML IV ONE (11:30)
[2021-04-08] MEDS ORDERED: ONDANSETRON PF 4 MG/2 ML VIAL. IVP ONE (11:30)
[2021-04-08] MEDS ORDERED: IOHEXOL 300 MG/ML 100ML VIAL. IV ONE (11:30)
[2021-04-08] MEDS ORDERED: IOHEXOL 240 MG/ML 50ML VIAL. PO ONE (11:30)
[2021-04-08 11:42] LABS: BILIRUBIN,URINE NEGATIVE (NEG); CLARITY,URINE CLEAR; COLOR,URINE YELLOW; NITRITE,URINE NEGATIVE (NEG); PH,URINE 7.5 (<5.0-8.0); PROTEIN,URINE NEGATIVE (NEG-TRACE); UROBILINOGEN,URINE 0.2 mg/dL (0.2 mg/dL)
[2021-04-08] MEDS ORDERED: CONTRAST GIVEN. MC PRN (11:45)
[2021-04-08 12:01] LABS: BASO % 1 % (0-3); EOS # 0.1 x10^3/uL (0.0-0.7); EOS % 2 % (0-3); HEMATOCRIT 31.5 % (36.0-47.0); HEMOGLOBIN 10.6 g/dL (12.0-15.5); LYMPH # 1.6 x10^3/uL (1.0-4.8); LYMPH % 23 % (24-48); MEAN CORPUSCULAR HEMOGLOBIN 28 pg (25-35); MEAN CORPUSCULAR HGB CONC 34 g/dL (31-37); MEAN CORPUSCULAR VOLUME 83 fL (79-100); MONO # 0.5 x10^3/uL (0.0-1.1); MONO % 7 % (0-9); NEUT # 4.7 x10^3/uL (1.8-7.7); NEUT % 68 % (31-73); PLATELET COUNT 240 x10^3/uL (140-400); RED BLOOD COUNT 3.79 x10^6/uL (3.50-5.40); RED CELL DISTRIBUTION WIDTH 16.6 % (11.5-14.5); WHITE BLOOD COUNT 6.9 x10^3/uL (4.0-11.0)
[2021-04-08 12:03] LABS: BACTERIA,URINE FEW /HPF (0-FEW)
[2021-04-08 12:04] LABS: RBC,URINE 0 /HPF (0-2); WBC,URINE OCC /HPF (0-4)
[2021-04-08 12:07] LABS: CALCIUM 8.5 mg/dL (8.5-10.1); CREATININE 0.8 mg/dL (0.6-1.0); GFR 83.7; POTASSIUM 3.3 mmol/L (3.5-5.1)
[2021-04-08 12:13] LABS: ALBUMIN 3.3 g/dL (3.4-5.0); ALBUMIN/GLOBULIN RATIO 1.1 (1.0-1.7); TOTAL BILIRUBIN 0.3 mg/dL (0.2-1.0); TOTAL PROTEIN 6.3 g/dL (6.4-8.2)
--- NOTE | 2021-04-08 13:14 | ED.ADGEN ---
Past Medical History Past Medical History: Kidney Stone, Other Additional Past Medical Histor: CROHNS Past Surgical History: Appendectomy, Cholecystectomy Smoking Status: Never Smoker Alcohol Use: None General Adult EDM: Chief Complaint: ABDOMINAL PAIN HPI: HPI: Patient is a 31-year-old female past medical history of Crohn's who presents to the emergency room complaining of abdominal pain, diarrhea, vomiting that has been ongoing for several weeks. She states is gotten worse and that she think she has been running fevers this week. This feels similar to several episodes she has had in the past. She is supposed to see a GI specialist later this month. She has never seen a GI specialist previously. She states that she is supposed to get a colonoscopy as well. She states she has been taking Tylenol at home without any relief. She denies taking anything else Review of Systems: Review of Systems: Complete ROS is negative unless otherwise documented in HPI Current Medications: Current Medications Medications (Trade) Dose Ordered Sig/Lynda Start Time Stop Time Status Last Admin Dose Admin Info (CONTRAST GIVEN -- Rx MONITORING) 1 each PRN DAILY PRN 04/08/21 11:45 04/10/21 11:44 Iohexol (Omnipaque 240 Mg/ml) 50 ml 1X ONCE 04/08/21 11:30 04/08/21 11:31 DC 04/08/21 13:15 50 ML Iohexol (Omnipaque 300 Mg/ml) 75 ml 1X ONCE 04/08/21 11:30 04/08/21 11:31 DC 04/08/21 13:15 75 ML Ondansetron HCl (Zofran) 4 mg 1X ONCE 04/08/21 11:30 04/08/21 11:31 DC 04/08/21 11:30 4 MG Sodium Chloride 1,000 ml @ 1,000 mls/hr 1X ONCE 04/08/21 11:30 04/08/21 12:29 DC 04/08/21 11:57 1,000 MLS/HR Allergies: Allergies: Allergies Coded Allergies Type Severity Reaction Last Updated Verified metoclopramide Allergy Intermediate rash, lockjaw 09/10/20 Yes prochlorperazine Allergy Intermediate rash, lockjaw 09/10/20 Yes morphine Adverse Reaction Intermediate ITCHING 07/11/20 Yes Physical Exam: PE: General: Awake, alert, NAD. Well Nourished, well hydrated. Cooperative HEENT: Atraumatic, EOMI, PERRL, airway patent, moist oral mucosa Neck: Supple, trachea midline Respiratory: CTA bilaterally, normal effort, no wheezing/crackles CV: RRR, no murmur, cap refill <2 GI: Soft, nondistended, nontender, no masses MSK: No obvious deformities Skin: Warm, dry, intact Neuro: A&O x3, speech NL, sensory and motor grossly intact, no focal deficits Psych: Normal affect, normal mood, not suicidal or homicidal Current Patient Data: Labs: Laboratory Tests Test 04/08/21 11:09 04/08/21 11:13 04/08/21 11:51 Urine Collection Type Void Urine Color Yellow Urine Clarity Clear Urine pH 7.5 (<5.0-8.0) Urine Specific [place] 1.015 (1.000-1.030) Urine Protein Negative mg/dL (NEG-TRACE) Urine Glucose (UA) Negative mg/dL (NEG) Urine Ketones (Stick) Negative mg/dL (NEG) Urine Blood Negative (NEG) Urine Nitrite Negative (NEG) Urine Bilirubin Negative (NEG) Urine Urobilinogen Dipstick 0.2 mg/dL (0.2 mg/dL) Urine Leukocyte Esterase Negative (NEG) Urine RBC 0 /HPF (0-2) Urine WBC Occ /HPF (0-4) Urine Squamous Epithelial Cells Few /LPF Urine Bacteria Few /HPF (0-FEW) Urine Mucus Slight /LPF POC Urine HCG, Qualitative Hcg negative (Negative) White Blood Count 6.9 x10^3/uL (4.0-11.0) Red Blood Count 3.79 x10^6/uL (3.50-5.40) Hemoglobin 10.6 g/dL (12.0-15.5) L Hematocrit 31.5 % (36.0-47.0) L Mean Corpuscular Volume 83 fL (79-100) Mean Corpuscular Hemoglobin 28 pg (25-35) Mean Corpuscular Hemoglobin Concent 34 g/dL (31-37) Red Cell Distribution Width 16.6 % (11.5-14.5) H Platelet Count 240 x10^3/uL (140-400) Neutrophils (%) (Auto) 68 % (31-73) Lymphocytes (%) (Auto) 23 % (24-48) L Monocytes (%) (Auto) 7 % (0-9) Eosinophils (%) (Auto) 2 % (0-3) Basophils (%) (Auto) 1 % (0-3) Neutrophils # (Auto) 4.7 x10^3/uL (1.8-7.7) Lymphocytes # (Auto) 1.6 x10^3/uL (1.0-4.8) Monocytes # (Auto) 0.5 x10^3/uL (0.0-1.1) Eosinophils # (Auto) 0.1 x10^3/uL (0.0-0.7) Basophils # (Auto) 0.0 x10^3/uL (0.0-0.2) Sodium Level 143 mmol/L (136-145) Potassium Level 3.3 mmol/L (3.5-5.1) L Chloride Level 108 mmol/L (98-107) H Carbon Dioxide Level 27 mmol/L (21-32) Anion Gap 8 (6-14) Blood Urea Nitrogen 9 mg/dL (7-20) Creatinine 0.8 mg/dL (0.6-1.0) Estimated GFR (Cockcroft-Gault) 83.7 BUN/Creatinine Ratio 11 (6-20) Glucose Level 86 mg/dL (70-99) Calcium Level 8.5 mg/dL (8.5-10.1) Total Bilirubin 0.3 mg/dL (0.2-1.0) Aspartate Amino Transferase (AST) 24 U/L (15-37) Alanine Aminotransferase (ALT) 113 U/L (14-59) H Alkaline Phosphatase 133 U/L (46-116) H Total Protein 6.3 g/dL (6.4-8.2) L Albumin 3.3 g/dL (3.4-5.0) L Albumin/Globulin Ratio 1.1 (1.0-1.7) Laboratory Tests 04/08/21 11:51 Laboratory Tests 04/08/21 11:51 Vital Signs: Vital Signs Date Time Temp Pulse Resp B/P (MAP) Pulse Ox O2 Delivery O2 Flow Rate FiO2 04/08/21 11:46 110 16 124/77 (93) 99 Room Air 04/08/21 11:03 98.0 98.0 EKG: EKG: [] Heart Score: C/O Chest Pain: N/A Risk Factors: Risk Factors: DM, Current or recent (<one month) smoker, HTN, HLP, family history of CAD, obesity. Risk Scores: Score 0 - 3: 2.5% MACE over next 6 weeks - Discharge Home Score 4 - 6: 20.3% MACE over next 6 weeks - Admit for Clinical Observation Score 7 - 10: 72.7% MACE over next 6 weeks - Early Invasive Strategies Radiology/Procedures: Radiology/Procedures: [] Course & Med Decision Making: Course & Med Decision Making Pertinent Labs and Imaging studies reviewed. (See chart for details) Patient is a 31-year-old female who presents to the emergency room complaining of abdominal pain with associated vomiting and diarrhea. Patient does have a history of Crohn's. Of note I did review patient on [facility] and when asked about seeing a physician earlier this week, patient initially denied it and then stated that she got antibiotics for UTI at a walk-in clinic but did not receive anything else. According to records patient did receive oxycodone which she filled yesterday. Patient has several prescriptions for narcotic pain medicine written by several different people over the last few months. Of note she has had greater than 10 prescribers and has filled narcotics at greater than 7 pharmacies in the last 90 days. This raises significant concerns for narcotic seeking behavior. Abdominal lab work was ordered along with a CT abdomen pelvis to evaluate for any complications of patient's Crohn's including abscesses. Patient did not want to drink the contrast as she states it would make her throw up. She was given nausea medication. She did not have any vomiting here in the emergency room. CT does not show any intra-abdominal pathology. She does appear to have the beginning of a pneumonia. She does have cough here in the emergency room. We will place her on Augmentin. Patient's test results and vitals while in the ED were fully reviewed and discussed with the patient. Patient is stable and at this time does not need admission to the hospital. We have discussed strict return precautions and the importance of following up with their Primary Care Physician. Patient stated understanding and was given an o pportunity to ask any questions. Patient is in agreement with plan. Julisa Disclaimer: Julisa Disclaimer: This electronic medical record was generated, in whole or in part, using a voice recognition dictation system. Departure Departure Impression: Primary Impression: Crohn disease Additional Impression: Pneumonia Disposition: HOME / SELF CARE / HOMELESS Condition: STABLE Referrals: LC ARCE DO (PCP) Patient Instructions: Pneumonia, Adult Scripts Amoxicillin/Potassium Clav (AUGMENTIN 875-125 TABLET) 1 Each Tablet 1 TAB PO Q12HR, #20 TAB Prov: NATHAN RAMOS MD 04/08/21 Problem Qualifiers NATHAN RAMOS MD Apr 08, 2021 13:14
--- NOTE | 2021-04-08 13:31 | RAD ---
EXAM: Abdomen and pelvis CT with intravenous contrast. HISTORY: Pain. TECHNIQUE: Computed tomographic images of the abdomen and pelvis were obtained following the administ ration of intravenous contrast. Multiplanar reformatting was performed. *One or more of the following individualized dose reduction techniques were utilized for this examina tion: 1. Automated exposure control. 2. Adjustment of the mA and/or kV according to patient size. 3. Use of iterative reconstruction technique. COMPARISON: 05/20/2020. FINDINGS: Evaluation of the lower thorax demonstrates bandlike airspace disease involving the left lo wer lobe superimposed on posterior dependent and basilar atelectasis. There is no pleural effusion. T here is no suspicious hepatic lesion. The gallbladder absent. The pancreas is unremarkable. The splee n is upper normal in size. The stomach, adrenal glands and left kidney are unremarkable. There is mil d right hydronephrosis. No obstructive lesion is seen. The appendix is absent. There is no bowel obstruction or abnormal bowel wall thickening. There is sli ght colonic wall thickening likely due to relative under distention. There is no convincing colitis. The bladder is unremarkable. There is a 2.3 cm dominant right ovarian follicle/follicular cyst. There is trace pelvic free fluid, within physiologic limits. The aorta is normal in caliber. There is no l ymphadenopathy. There is no suspicious osseous lesion. IMPRESSION: 1. Bandlike airspace disease involving the medial left lower lobe due to consolidated infiltrate or a telectasis. Follow-up to confirm resolution. 2. Mild right hydronephrosis. No convincing obstructing lesion is seen. 3. 2.3 cm physiologic dominant right ovarian follicle/follicular cyst. Electronically signed by: Gretchen Felder MD (04/08/2021 1:29 PM) [id number]
[2021-04-08 13:47] VITALS: BP 130/78
[2021-04-08] MEDS ORDERED: AMOX1TAB61 PO (13:57)
== END 2021-04-08 14:12 | disposition home or self-care (01) ==
LOC: ER 10:58
DX: K50.90 Crohn's disease, unspecified, without complications (principal); J18.9 Pneumonia, unspecified organism; Z87.442 Personal history of urinary calculi; Z90.89 Acquired absence of other organs; Z90.49 Acquired absence of other specified parts of digestive tract; Z88.5 Allergy status to narcotic agent; Z88.8 Allergy status to other drugs, medicaments and biological substances
CPT/HCPCS: 36415; 74177; 80053; 81001; 81025; 85025; 96361; 96374; 99285; J2405; J7030; Q9966; Q9967